=== PATIENT | female | born 1930 | race Caucasian/White ===

== ENCOUNTER → 2016-10-08 | Outpatient (CLI) | payer OTHER ==
[~2016-10-08] MED LIST: ALBUAER19 INH; AMLO-110 PO; ASPI-435 PO; ASPI81CH2 PO; ATOR-26 PO; ATOR80TA PO; CLS1 PO; COLE1TAB PO; DIPH25TA24 PO; DXY100 PO; FRS/40 PO; HYDR-4715 PO; LISI40TA PO; LSX20 PO; LSX40 PO; METO25TA56 PO; MULT-506 PO; MULT-513 PO; NRV/5 PO; OXYC1TAB3 PO; POTA20TA16 PO; SERT50TA PO; SPRIN/30 INH; TIOTCAP INH; VNTHFA/IN INH; ZLF/50 PO
--- NOTE | 2016-10-08 15:07 | DIAGNOSTIC IMAGING REPORT ---
CERVICAL SPINE 6 VIEWS HISTORY: Right arm pain NECK AND RIGHT ARM PAIN COMPARISON: None. FINDINGS: The cervical spine is visualized from C1 through the superior endplate of T1. There is no fracture. No subluxation. Mild degenerative disc changes throughout. Moderate osteophytic narrowing of the bulk of the neuroforamina bilaterally at all levels. IMPRESSION: Degenerative change. Osteopenia. Osteophytic narrowing of the bulk of the neuroforamina bilaterally Electronically signed by: Fernando Hassan M.D. 10/08/2016 3:05 PM Dictated Date/Time: 10/08/2016 3:05 PM
== END | disposition home or self-care (01) ==
LOC: C.RDSM 08:00
PROVIDERS: ATTEND Family Medicine
DX: M79.601 Pain in right arm (principal); M54.2 Cervicalgia

== ENCOUNTER 2016-12-11 17:08 | Emergency (ER) | payer OTHER ==
[~2016-12-11] VITALS: Ht 170.2 cm; Wt 106.9 kg
[~2016-12-11 17:08] MED LIST changes: -AMLO-110 PO; -ASPI-435 PO; -ATOR-26 PO; -COLE1TAB PO; -FRS/40 PO; -LISI40TA PO; -MULT-506 PO; -SERT50TA PO; -SPRIN/30 INH; -VNTHFA/IN INH
[2016-12-11 17:11] VITALS: TEMP 36.4; Ht 170.2 cm; Wt 106.9 kg
[2016-12-11 17:20] VITALS: O2SAT 93
[2016-12-11] MEDS ORDERED: RANITIDINE HCL 50 MG/100 ML D5W IV STA (17:22)
[2016-12-11] MEDS ORDERED: DEXAMETHASONE SOD INJ 10 MG/ML VIAL IV ONE (17:30)
[2016-12-11 17:37] LABS: BASO % 0.4 %; BASO ABS # 0.04 K/uL (0-0.2); COMPLETE YES; EOS % 2.2 %; HEMATOCRIT 41.4 % (37-47); IG% 0.6 %; LYMPH % 15.4 %; LYMPH ABS # 1.65 K/uL (1.2-3.4); MEAN CELL VOLUME 91.8 fL (80-100); MEAN CORPUSCULAR HEMOGLOBIN 30.6 pg (25-34); MEAN CORPUSCULAR HGB CONC 33.3 g/dl (32-36); MEAN PLATELET VOLUME 10.9 fL (7.4-10.4); MONO % 8.7 %; NEUT % 72.7 %; PLATELET COUNT 222 K/uL (130-400); RED BLOOD COUNT 4.51 M/uL (4.2-5.4); WHITE BLOOD COUNT 10.74 K/uL (4.8-10.8)
[2016-12-11] MEDS ORDERED: ATOR-26 PO (17:42)
[2016-12-11] MEDS ORDERED: VNTHFA/IN INH (17:42)
[2016-12-11] MEDS ORDERED: SERT50TA PO (17:42)
[2016-12-11] MEDS ORDERED: AMLO-110 PO (17:42)
[2016-12-11] MEDS ORDERED: SPRIN/30 INH (17:42)
[2016-12-11] MEDS ORDERED: FRS/40 PO (17:42)
[2016-12-11] MEDS ORDERED: MULT-506 PO (17:42)
[2016-12-11] MEDS ORDERED: ASPI-435 PO (17:42)
[2016-12-11] MEDS ORDERED: METO25TA56 PO (17:42)
[2016-12-11] MEDS ORDERED: COLE1TAB PO (17:42)
[2016-12-11] MEDS ORDERED: LISI40TA PO (17:42)
[2016-12-11 17:55] LABS: CREATININE 0.87 mg/dl (0.60-1.20); POTASSIUM 4.1 mmol/L (3.5-5.1)
--- NOTE | 2016-12-11 18:43 | EMERGENCY ROOM VISIT NOTE ---
ED Visit Note First contact with patient: 17:15 I saw this patient in conjunction with Ca zelaya PA-C. I agree with her decision-making and treatment plan.
--- NOTE | 2016-12-11 18:46 | EMERGENCY ROOM VISIT NOTE ---
History First contact with patient: 17:16 Chief Complaint: SWELLING TO EXTREMITY Stated Complaint: SWOLLEN FACE History of Present Illness The patient is a 86 year old female who presents to the Emergency Room with complaints of swelling to her lips and face. The patient states that she ate breakfast at 11 AM and one hour later she could start filling her lips and face swell. She denies any throat or chest tightness. The patient states that she had this happen one time in the past. She has never seen an senior financial accountant. The patient states that she did not eat anything out of the ordinary this morning for breakfast. She had Rice Krispies, V8 juice, milk and pinedo. The patient normally does not wear oxygen at home. She does admit to shortness of breath with exertion but that is normal for her. The patient denies any rashes. Review of Systems 10 system review was performed and was negative unless stated otherwise history of present illness. Past Medical/Surgical History Medical Problems: (1) Benign neoplasm of colon (2) Coronary angioplasty (3) Coronary artery bypass grafting (4) Diastolic CHF (5) Diastolic heart failure (6) Dyslipidemia (7) HTN (hypertension) (8) Hypertensive urgency (9) Intestinal cauterization (10) Lower gastrointestinal hemorrhage (11) Paroxysmal a-fib (12) Respiratory failure, acute (13) Total replacement of hip Surgical Problems: (1) H/O: hysterectomy (2) History of coronary artery stent placement (3) S/P TKR (total knee replacement) Family History Patient reports no known family medical history. Social History Smoking Status: Never Smoker Alcohol Use: none Drug Use: none Marital Status: Housing Status: lives with family Occupation Status: retired Current/Historical Medications Scheduled Amlodipine (Norvasc), 5 MG PO DAILY Aspirin (Aspirin 81), 81 MG PO DAILY Atorvastatin (Lipitor), 80 MG PO DAILY Colestipol Hcl (Colestid), 1 GM PO DAILY Furosemide (Lasix), 40 MG PO DAILY Lisinopril (Zestril), 40 MG PO DAILY Metoprolol Tartrate (Lopressor) (Lopressor), 12.5 MG PO BID Multivitamin (Multivitamin), 1 TAB PO DAILY Sertraline (Zoloft), 50 MG PO DAILY Tiotropium [place] (Spiriva Handihaler), 1 CAP INH DAILY Scheduled PRN Albuterol Hfa (Ventolin Hfa), 2-4 PUFFS INH Q6H PRN for SOB/Wheezing Allergies Coded Allergies: Fexofenadine (Verified Allergy, Mild, 09/05/15) Acetaminophen (Verified Allergy, Unknown, Hives., 09/05/15) Diphenhydramine (Verified Allergy, Unknown, 09/05/15) NSAIDs (Verified Adverse Reaction, Intermediate, ASA = BLEEDING, 09/05/15) Ezetimibe (Verified Adverse Reaction, Unknown, Nervous and jittery., ) Simvastatin (Verified Adverse Reaction, Unknown, Jittery and anxious., ) Physical Exam Vital Signs Date Time Temp Pulse Resp B/P Pulse Ox O2 Delivery O2 Flow Rate FiO2 12/11/16 18:24 86 22 131/91 94 Room Air 12/11/16 17:46 75 12/11/16 17:20 93 Room Air 12/11/16 17:11 36.4 74 28 108/62 96 Room Air Physical Exam GENERAL: 86-year-old white female appears in no acute distress. MENTAL STATUS: Alert and oriented 3. FACE: Generalized facial swelling without erythema. LIPS: Diffuse generalized swelling NECK: Supple, no lymphadenopathy noted. No carotid bruits noted. LUNGS: Clear auscultation without wheezes rales or rhonchi. CARDIAC: Regular rate and rhythm without murmur. Pulses is full and equal throughout. SKIN: No rashes noted. Medical Decision & Procedures Laboratory Results 12/11/16 17:26 Red Blood Count 4.51, Mean Corpuscular Volume 91.8, Mean Corpuscular Hemoglobin 30.6, Mean Corpuscular Hemoglobin Concent 33.3, Mean Platelet Volume 10.9, Neutrophils (%) (Auto) 72.7, Lymphocytes (%) (Auto) 15.4, Monocytes (%) (Auto) 8.7, Eosinophils (%) (Auto) 2.2, Basophils (%) (Auto) 0.4, Neutrophils # (Auto) 7.82, Lymphocytes # (Auto) 1.65, Monocytes # (Auto) 0.93, Eosinophils # (Auto) 0.24, Basophils # (Auto) 0.04 12/11/16 17:26 Test 12/11/16 17:26 White Blood Count 10.74 K/uL (4.8-10.8) Red Blood Count 4.51 M/uL (4.2-5.4) Hemoglobin 13.8 g/dL (12.0-16.0) Hematocrit 41.4 % (37-47) Mean Corpuscular Volume 91.8 fL (80-100) Mean Corpuscular Hemoglobin 30.6 pg (25-34) Mean Corpuscular Hemoglobin Concent 33.3 g/dl (32-36) Platelet Count 222 K/uL (130-400) Mean Platelet Volume 10.9 fL (7.4-10.4) Neutrophils (%) (Auto) 72.7 % Lymphocytes (%) (Auto) 15.4 % Monocytes (%) (Auto) 8.7 % Eosinophils (%) (Auto) 2.2 % Basophils (%) (Auto) 0.4 % Neutrophils # (Auto) 7.82 K/uL (1.4-6.5) Lymphocytes # (Auto) 1.65 K/uL (1.2-3.4) Monocytes # (Auto) 0.93 K/uL (0.11-0.59) Eosinophils # (Auto) 0.24 K/uL (0-0.5) Basophils # (Auto) 0.04 K/uL (0-0.2) RDW Standard Deviation 48.8 fL (36.4-46.3) RDW Coefficient of Variation 14.4 % (11.5-14.5) Immature Granulocyte % (Auto) 0.6 % Immature Granulocyte # (Auto) 0.06 K/uL (0.00-0.02) Anion Gap 7.0 mmol/L (3-11) Est Creatinine Clear Calc Drug Dose 56.3 ml/min Estimated GFR () 68.9 Estimated GFR (Non- 59.5 BUN/Creatinine Ratio 23.0 (10-20) Calcium Level 9.0 mg/dl (8.5-10.1) Medications Administered Medications (Trade) Dose Ordered Sig/Pily Route Start Time Stop Time Status Last Admin Dose Admin Dexamethasone Sodium Phosphate (Decadron Inj) 10 mg NOW ONCE IV 12/11/16 17:30 12/11/16 17:31 DC 12/11/16 17:30 10 MG Ranitidine HCl (zANTac IV) 50 mg NOW STAT IV 12/11/16 17:22 12/11/16 17:26 DC 12/11/16 17:30 50 MG ED Course The patient was evaluated. The patient's EMR and medication list were reviewed. IV access was obtained. The patient was placed on a monitor and continuous pulse ox. She is also placed on 2 L oxygen. CBC and differential and renal profile was ordered. The patient was given Decadron 10 mg IV and Zantac 50 mg IV. The patient was not given Benadryl since she is allergic to Benadryl. The patient's case was discussed with Dr. Wagner who independently evaluated the patient agreed with treatment plan. Labs are reviewed and were unremarkable. The patient was reevaluated on multiple occasions throughout her ER stay. The patient's lip swelling was improving and she did not complain of any throat or chest tightness therefore she was discharged home in stable condition. Medical Decision Differential diagnosis include allergic reaction, contact dermatitis, food allergy, anaphylaxis The patient did not have any throat or chest tightness therefore the patient was not administered epinephrine. Impression Primary Impression: Allergic reaction Departure Information Dispostion Home / Self-Care Condition GOOD Referrals No Doctor, Assigned (PCP) Forms HOME CARE DOCUMENTATION FORM, IMPORTANT VISIT INFORMATION, WORK / SCHOOL INSTRUCTIONS Patient Instructions ED Allergic Reaction General Other, CYBRA Additional Instructions Sleep with your head elevated this evening. If you experience any throat or chest tightness return to the ER immediately. Follow-up with your family physician tomorrow for recheck. Problem Qualifiers Primary Impression: Allergic reaction Encounter type: initial encounter Qualified Codes: T78.40XA - Allergy, unspecified, initial encounter
[2016-12-11 19:03] VITALS: BP 125/84; PULSE 85; O2SAT 96
== END 2016-12-11 19:06 | disposition home or self-care (01) ==
LOC: C.EDB 17:09 → C.EDC 19:06
DX: T78.40XA Allergy, unspecified, initial encounter (principal); X58.XXXA Exposure to other specified factors, initial encounter; I10 Essential (primary) hypertension; E78.5 Hyperlipidemia, unspecified; I48.91 Unspecified atrial fibrillation; I50.30 Unspecified diastolic (congestive) heart failure; Z98.61 Coronary angioplasty status; Z96.649 Presence of unspecified artificial hip joint; Z96.659 Presence of unspecified artificial knee joint; Z87.19 Personal history of other diseases of the digestive system; Z79.82 Long term (current) use of aspirin; Z79.899 Other long term (current) drug therapy; Z88.6 Allergy status to analgesic agent; Z88.8 Allergy status to other drugs, medicaments and biological substances

== ENCOUNTER → 2017-01-16 | Outpatient (CLI) | payer OTHER ==
[~2017-01-16] MED LIST changes: -ALBUAER19 INH; +AMLO-110 PO; +ASPI-435 PO; -ASPI81CH2 PO; +ATOR-26 PO; -ATOR80TA PO; -CLS1 PO; +COLE1TAB PO; -DIPH25TA24 PO; -DXY100 PO; +FRS/40 PO; -HYDR-4715 PO; +LISI40TA PO; -LSX20 PO; -LSX40 PO; +MULT-506 PO; -MULT-513 PO; -NRV/5 PO; -OXYC1TAB3 PO; -POTA20TA16 PO; +SERT50TA PO; +SPRIN/30 INH; -TIOTCAP INH; +VNTHFA/IN INH; -ZLF/50 PO
--- NOTE | 2017-01-16 11:46 | DIAGNOSTIC IMAGING REPORT ---
NECK ULTRASOUND CLINICAL HISTORY: Right anterior neck pain. COMPARISON STUDY: None. TECHNIQUE: Sonography of the neck was performed. FINDINGS: Note was made of a morphologically benign-appearing right cervical lymph node that measures 1.4 x 1.2 x 0.7 cm. This node has a fatty hilum with a thin cortex. No suspicious nodes or masses were identified within the neck. There is no fluid collection. IMPRESSION: 1. No suspicious findings within the neck at site of maximal pain by sonography. 2. Morphologically benign right cervical lymph node. Electronically signed by: Juventino Dasilva M.D. 01/16/2017 11:45 AM Dictated Date/Time: 01/16/2017 11:43 AM
== END | disposition home or self-care (01) ==
LOC: C.ULTR 10:53
PROVIDERS: ATTEND Family Medicine
DX: M54.2 Cervicalgia (principal)

== ENCOUNTER → 2017-03-27 | Outpatient (CLI) | payer OTHER ==
--- NOTE | 2017-03-27 16:07 | DIAGNOSTIC IMAGING REPORT ---
RIGHT SHOULDER 3 VIEWS HISTORY: RIGHT SHOULDER AND ARM PAIN Right COMPARISON: None. FINDINGS: There is no fracture or dislocation. Soft tissues are unremarkable. Mild AC joint arthrosis. The right clavicle is intact. The bones are osteopenic. Severe cartilage space narrowing at the glenohumeral joint with small marginal osteophytes. This is consistent with osteoarthritis. Mild interstitial thickening within the right lung. IMPRESSION: No fracture or dislocation within the right shoulder. Advanced glenohumeral joint osteoarthritis. Electronically signed by: Musa Scott M.D. 03/27/2017 4:06 PM Dictated Date/Time: 03/27/2017 4:04 PM
== END | disposition home or self-care (01) ==
LOC: C.RDSM 15:33
PROVIDERS: ATTEND Family Medicine
DX: M19.011 Primary osteoarthritis, right shoulder (principal)

== ENCOUNTER → 2017-04-23 | Day surgery (SDC) | payer OTHER ==
[2017-04-02 12:58] VITALS: Ht 171.5 cm; Wt 90.9 kg
[~2017-04-23] VITALS: Ht 171.5 cm; Wt 90.9 kg
[~2017-04-23] MED LIST changes: +500ML BSS 0.3ML EPI 1:1000PF IRRIG ONE; +AMVISC PLUS 0.8ML SYRINGE INT OCU ONE; +ATROPINE SULFATE 0.1 MG/ML 5ML SYR IV PRN; +BSS FLUSH ONE; +EpHEDrine SULFATE INJ 50 MG/ML AMP IV PRN; +EpINEphrine INJ 1MG/ML AMP 1 MG/ML AMP ONE; +LACTATED RINGER'S 1000ML 500 ML IV SCH; +LIDOCAINE 3.5% OPH GEL PER APPLICATION CHARGE ONE; +LIDOCAINE HCL 1% MPF 2 ML VIAL ONE; +MIDAZOLAM HCL 1 MG/ML 2ML VIAL ONE; +OCUCOAT 1 ML SOLN IO ONE; +POVIDONE-IODINE OP SOLN 30 ML BTL ONE; +PROPARACAINE 0.5% OP SOLN PER DROP CHARGE OPR SCH; +SODIUM CHLORIDE 0.9% 500ML IV SCH; +TOBRAMYCIN/DEXAMETHASONE OPH OINT PER APPLN CHARGE ONE
--- NOTE | 2017-04-23 09:21 | History & Physical Bridge - [place] ---
H&P Re-Evaluation Bridge Note: I have examined the patient, reviewed the History & Physical and in the interval since the performance of the History & Physical I have noted the following changes of clinical significance: No changes noted
[2017-04-23] MEDS: PHENYLEPHRINE HCL 2.5% OP SOLN PER DROP CHARGE OPR SCH ×2 (09:48→09:53)
[2017-04-23] MEDS: TROPICAMIDE 1% OP SOLN PER DROP CHARGE OPR SCH ×2 (09:49→09:54)
[2017-04-23] MEDS: CYCLOPENTOLATE HCL 1% OP SOLN PER DROP CHARGE OPR SCH ×2 (09:50→09:55)
[2017-04-23] MEDS: KETOROLAC 0.5% OP SOLN PER DROP CHARGE OPR SCH ×2 (09:51→09:56)
[2017-04-23] MEDS: GATIFLOXACIN OP SOLN PER DROP CHARGE OPR SCH ×2 (09:52→10:02)
--- NOTE | 2017-04-23 10:30 | Discharge Instructions-SurgCtr ---
Discharge Instructions Date of Service Apr 23, 2017. Visit Reason for Visit: Cataract Right Eye Discharge Discharge Diagnosis / Problem: cataract Discharge Goals Goal(s): Improve function Activity Recommendations Activity Limitations: per Instructions/Follow-up section Anesthesia . Post Anesthesia Instructions: If you have had General Anesthesia or IV Sedation: * Do not drive today. * Resume driving when surgeon permits. * Do not make important decisions or sign legal documents today. * Call surgeon for: 1. Temperature elevations greater than 101 degrees F. 2. Uncontrollable pain. 3. Excessive bleeding. 4. Persistent nausea and vomiting. 5. Medication intolerance (nausea, vomiting or rash). * For nausea and vomiting use only clear liquids such as: tea, soda, bouillon until nausea subsides, then gradually increase diet as tolerated. * If you have any concerns or questions, call your surgeon's office. If physician is unavailable and it is an emergency, call 911 or go to the nearest emergency room. . Diet Recommendations Home Diet: resume previous diet Procedures Procedures Performed: Right Cataract Phacoemulsification With Intraocular Lens Implant Pending Studies Studies pending at discharge: no Medical Emergencies . Who to Call and When: Medical Emergencies: If at any time you feel your situation is an emergency, please call 911 immediately. . Non-Emergent Contact Non-Emergency issues call your: Member Services Coordinator . . "Provider Documentation" section prepared by Cezar Smith. .
--- NOTE | 2017-04-23 10:31 | [facility] Operative Report ---
Operative Report Date of Service Apr 23, 2017. Operative Report 1. PREOPERATIVE DIAGNOSIS: Cataract of the right eye. 2. POSTOPERATIVE DIAGNOSIS: Same. 3. PROCEDURE: Phacoemulsification with intraocular lens implantation of the right eye. SURGEON: Dr. Cezar Smith. ANESTHESIA: Topical Lidocaine gel, 1% Non- Preserved intracameral Lidocaine, and monitored intravenous sedation. INDICATIONS FOR THE PROCEDURE: The patient is a 86 - year-old female with a history of cataract of the right eye causing significant visual impairment. The details of the proposed procedure were explained to the patient who asked appropriate questions and following discussion of all risks, benefits and alternatives agreed to have the procedure done. 4. OPERATION AND FINDINGS: DESCRIPTION OF PROCEDURE: After informed consent was obtained, the patient was brought to the Operating Room at the [facility]. The patient was placed in a supine position and then the right eye was prepped and draped in the usual sterile fashion for intraocular surgery. A drop of topical Lidocaine gel was placed in the operative eye. A wire lid speculum was then placed in the fornices. A corneal paracentesis was then created temporally. The Non-Preserved Lidocaine was then instilled into the anterior chamber. The anterior chamber was then pressurized with viscoelastic. A 2.0 mm clear corneal incision was then created temporally. A cystotome was inserted into the anterior chamber and used to create a tear in the anterior lens capsule. This capsular tear was then used to create a small flap and the flap was dragged in a counterclockwise direction in order to create a continuous curvilinear capsulorrhexis. Hydrodissection was accomplished with balanced salt solution. Phacoemulsification of the lens nucleus was then performed in a standard [id number] technique. The phaco time was 27 seconds with an average power of 15 %. The remaining cortical material was removed using irrigation aspiration. The capsular bag was then filled with viscoelastic. A [employer]ch [employer] Lomb MI60L +15.5 diopters lens was then loaded into the injector and injected into the capsular bag. The remaining viscoelastic was removed with the irrigation aspiration handpiece. The wound was hydrated and then checked and found to be watertight. The intraocular pressure was checked and found to be adequate. The wire lid speculum was removed and the patient's face was cleaned and dried. TobraDex ointment was placed in the inferior fornix. The patient was discharged to the Recovery Room having tolerated the procedure well. There were no complications. The patient will be seen tomorrow in the office for follow-up. I attest to the content of the Intraoperative Record and any orders documented therein. Any exceptions are noted below.
--- NOTE | 2017-04-23 10:38 | Anesthesia Progress Nt - [facility] ---
Anesthesia Post Op Note Date & Time Apr 23, 2017 at 10:38 Vital Signs Pain Intensity: 0 Vital Signs Past 12 Hours Date Time Temp Pulse Resp B/P (MAP) Pulse Ox O2 Delivery O2 Flow Rate FiO2 04/23/17 09:28 36.4 94 20 151/74 (99) 95 Room Air Notes Mental Status: alert / awake / arousable, participated in evaluation Pt Amnestic to Procedure: Yes Nausea / Vomiting: adequately controlled Pain: adequately controlled Airway Patency, RR, SpO2: stable & adequate BP & HR: stable & adequate Hydration State: stable & adequate Anesthetic Complications: no major complications apparent
[2017-04-23 10:54] VITALS: BP 127/73; PULSE 88; O2SAT 94
== END | disposition home or self-care (01) ==
LOC: X.SURG 08:35
PROVIDERS: ATTEND Ophthalmology
DX: H26.9 Unspecified cataract (principal); I25.10 Atherosclerotic heart disease of native coronary artery without angina pectoris; I11.0 Hypertensive heart disease with heart failure; I50.9 Heart failure, unspecified; I48.91 Unspecified atrial fibrillation; E78.5 Hyperlipidemia, unspecified; I25.2 Old myocardial infarction; Z96.649 Presence of unspecified artificial hip joint; Z68.31 Body mass index [BMI] 31.0-31.9, adult; Z96.641 Presence of right artificial hip joint; Z96.652 Presence of left artificial knee joint; Z90.710 Acquired absence of both cervix and uterus; Z79.899 Other long term (current) drug therapy

== ENCOUNTER → 2017-04-29 | Outpatient (CLI) | payer OTHER ==
[~2017-04-29] MED LIST changes: -500ML BSS 0.3ML EPI 1:1000PF IRRIG ONE; -AMVISC PLUS 0.8ML SYRINGE INT OCU ONE; -ATROPINE SULFATE 0.1 MG/ML 5ML SYR IV PRN; -BSS FLUSH ONE; -EpHEDrine SULFATE INJ 50 MG/ML AMP IV PRN; -EpINEphrine INJ 1MG/ML AMP 1 MG/ML AMP ONE; -LACTATED RINGER'S 1000ML 500 ML IV SCH; -LIDOCAINE 3.5% OPH GEL PER APPLICATION CHARGE ONE; -LIDOCAINE HCL 1% MPF 2 ML VIAL ONE; -MIDAZOLAM HCL 1 MG/ML 2ML VIAL ONE; -OCUCOAT 1 ML SOLN IO ONE; +OPTIRAY 320 IV PRN; -POVIDONE-IODINE OP SOLN 30 ML BTL ONE; -PROPARACAINE 0.5% OP SOLN PER DROP CHARGE OPR SCH; -SODIUM CHLORIDE 0.9% 500ML IV SCH; -TOBRAMYCIN/DEXAMETHASONE OPH OINT PER APPLN CHARGE ONE
--- NOTE | 2017-04-29 16:06 | DIAGNOSTIC IMAGING REPORT ---
CT SCAN OF THE CHEST WITH IV CONTRAST CLINICAL HISTORY: Dyspnea. COMPARISON STUDY: Chest CT dated 12/26/2009. Chest x-ray dated 01/20/2016. TECHNIQUE: Following the IV administration of 93 cc of Optiray 320, CT scan of the thorax was performed from the thoracic inlet to the upper abdomen. Images are reviewed in the axial, sagittal, and coronal planes. IV contrast was administered without complication. A dose lowering technique was utilized adhering to the principles of ALARA. CT DOSE: 655.87 mGycm FINDINGS: Thyroid: Imaged portions of the thyroid gland are normal in size and attenuation. 11 mm low-attenuation nodule containing a coarse calcification is seen in the right lobe. Thoracic aorta: There is atherosclerotic calcification of the thoracic aorta is normal in caliber and demonstrates bovine variant arch anatomy. No dissection is seen. Pulmonary vasculature: The pulmonary trunk is dilated measuring 4.5 cm in diameter. This suggests pulmonary artery hypertension. There are no filling defects identified in the central pulmonary vessels to indicate pulmonary embolus. Note that this examination was not protocoled for evaluation of the pulmonary arteries. Heart: The heart is markedly enlarged and there is a small to moderate pericardial effusion. The coronary arteries are densely calcified. Lungs and pleural spaces: There is no airspace consolidation or pleural effusion. The trachea and central airways are clear. Subpleural reticulation is seen throughout both lungs. No honeycombing or traction bronchiectasis is identified. An 11 mm right lower lobe pulmonary nodule seen on image #140 is new from studies dated 2010. A 4 mm pleural-based nodule in the lingula on image #100 is unchanged. Mediastinum: There are prominent mediastinal lymph nodes which measure up to 1.4 cm in short axis. These are similar appearance to the 2010 examination. Penny: Clear. Axillae: There is no axillary lymphadenopathy. Upper abdomen: A tiny hiatal hernia is identified. A 2.0 cm left adrenal nodule is unchanged from 2010 and likely represents a benign adenoma. Skeletal structures: The skeletal structures are osteopenic. Advanced arthritic change is seen in the shoulders and thoracic spine. Hyperkyphosis is observed. No lytic or blastic bony lesions are seen. IMPRESSION: 1. There is no airspace consolidation or pleural effusion. 2. Cardiomegaly with a small to moderate pericardial effusion and evidence of pulmonary artery hypertension. 3. Diffuse subpleural reticulation is likely related to chronic lung disease. 4. An 11 mm right lower lobe pulmonary nodule is new from 2009. This is pathologically indeterminant with neoplasm not excluded. This can be followed if clinically warranted. 5. Additional findings as above. Electronically signed by: Kyler Buckley M.D. 04/29/2017 4:05 PM Dictated Date/Time: 04/29/2017 3:57 PM
[2017-04-29 20:16] LABS: ISTAT CREATININE 0.7 mg/dl (0.6-1.3); ISTAT HEMOGLOBIN 13.6 g/dl (12.0-16.0); ISTAT IONIZED CALCIUM 1.26 mmol/l (1.12-1.32)
== END | disposition home or self-care (01) ==
LOC: C.CTS 14:38
PROVIDERS: ATTEND Internal Medicine Pulmonary Disease
DX: R06.00 Dyspnea, unspecified (principal); I51.7 Cardiomegaly; I31.8 Other specified diseases of pericardium; R91.8 Other nonspecific abnormal finding of lung field; R91.1 Solitary pulmonary nodule

== ENCOUNTER → 2017-05-13 | Outpatient (CLI) | payer OTHER ==
[~2017-05-13] MED LIST changes: -OPTIRAY 320 IV PRN
--- NOTE | 2017-05-13 16:14 | DIAGNOSTIC IMAGING REPORT ---
PET/CT SKULL-THIGH CLINICAL HISTORY: 86 years-old Female with PULMONARY NODULE. Follow-up study to assess pulmonary nodule. 11 mm right lower lobe pulmonary nodule seen on comparison CT. COMPARISON: Chest CT 04/29/2017 and 12/26/2009 TECHNIQUE: The patient was injected with 9.6 mCi of F-18 fluorodeoxyglucose (FDG) and an emission scan was performed from the skull vertex to the toes. Noncontrast CT was performed for attenuation correction and anatomic localization. The blood glucose level was 120 mg/dl. FINDINGS: Study is moderately limited secondary to patient motion artifact. HEAD AND NECK: There is focal increased radiotracer uptake in the region of the left mandibular teeth without correlate on the CT portion of the study secondary to streak artifact from dental amalgam demonstrating SUV max of 5.1. Mildly increased tracer uptake is seen involving the left vocal cord with SUV max of 4.4 which appears to be mildly thickened in comparison to the right, likely incidental secondary to recent speech. CHEST: 11 x 7 mm noncalcified pulmonary nodule of the superior segment right lower lobe seen on image 88 series 2 without definite increased radiotracer uptake. As previously mentioned however, the study is limited secondary to motion. There is a physiologic distribution of activity, with no hypermetabolic mediastinal, hilar or pulmonary foci. ABDOMEN AND PELVIS: There is a physiologic distribution of activity within the liver, spleen, adrenal glands, and urinary tracts, with no hypermetabolic foci. Mildly increased radiotracer uptake within the distal sigmoid colon is noted with SUV max of 5.3. MUSCULOSKELETAL SYSTEM AND EXTREMITIES: There is a physiologic distribution of activity within the bone marrow, with no hypermetabolic foci. Likely degenerative mild uptake is noted about the shoulders and spine as well as within the region of the left SI joint. ADDITIONAL CT FINDINGS: Cardiomegaly with coronary arterial disease, mitral valve annular calcifications, small pericardial effusion and pulmonary arterial enlargement compatible with pulmonary arterial hypertension. Mildly enlarged lymph nodes about the mediastinum noted with right paratracheal lymph node measuring up to 11 mm. No significant associated FDG uptake suggesting physiologic etiology. Bilateral groundglass opacities suggest atelectasis and/or chronic interstitial changes. Extensive atherosclerosis of the abdominal aorta with fusiform infrarenal aneurysm, 4.1 x 3.6 cm. Cholelithiasis. Extensive colonic diverticulosis. Right hip arthroplasty. Calcifications of the left breast parenchyma. IMPRESSION: 1. Moderately limited study secondary to patient motion. 2. 11 x 7 mm noncalcified solid pulmonary nodule of the superior segment right lower lobe does not demonstrate appreciable FDG uptake. This however does not exclude neoplasm and is borderline limits in size for PET resolution. Continued follow-up is needed. 3. Mildly increased radiotracer uptake of the distal sigmoid colon is likely physiologic. This could be correlated with colonoscopy. 4. Mildly increased radiotracer uptake within the region of the left mandibular teeth without correlate on the CT portion secondary to streak artifact from dental amalgam suggests periodontal disease. Correlate with dental examination. 5. Incidental findings include cardiomegaly with evidence of pulmonary arterial hypertension, 4.1 cm fusiform infrarenal abdominal aortic aneurysm, cholelithiasis and colonic diverticulosis. The above report was generated using voice recognition software. It may contain grammatical, syntax or spelling errors. Electronically signed by: Micheal Callahan M.D. 05/13/2017 4:12 PM Dictated Date/Time: 05/13/2017 3:00 PM
== END | disposition home or self-care (01) ==
LOC: C.PET 10:07
PROVIDERS: ATTEND Internal Medicine Pulmonary Disease
DX: R91.1 Solitary pulmonary nodule (principal)

== ENCOUNTER → 2017-05-14 | Day surgery (SDC) | payer OTHER ==
[2017-05-02 12:45] VITALS: Ht 171.5 cm; Wt 90.9 kg
[~2017-05-14] VITALS: Ht 171.5 cm; Wt 90.9 kg
[~2017-05-14] MED LIST changes: +500ML BSS 0.3ML EPI 1:1000PF IRRIG ONE; +AMVISC PLUS 0.8ML SYRINGE INT OCU ONE; +ATROPINE SULFATE 0.1 MG/ML 5ML SYR IV PRN; +BSS FLUSH ONE; +EpHEDrine SULFATE INJ 50 MG/ML AMP IV PRN; +EpINEphrine INJ 1MG/ML AMP 1 MG/ML AMP ONE; +LACTATED RINGER'S 1000ML 500 ML IV SCH; +LIDOCAINE 3.5% OPH GEL PER APPLICATION CHARGE ONE; +LIDOCAINE HCL 1% MPF 2 ML VIAL ONE; +MIDAZOLAM HCL 1 MG/ML 2ML VIAL ONE; +OCUCOAT 1 ML SOLN IO ONE; +POVIDONE-IODINE OP SOLN 30 ML BTL ONE; +PROPARACAINE 0.5% OP SOLN PER DROP CHARGE OPL SCH; +TOBRAMYCIN/DEXAMETHASONE OPH OINT PER APPLN CHARGE ONE
[2017-05-14] MEDS: PHENYLEPHRINE HCL 2.5% OP SOLN PER DROP CHARGE OPL SCH ×2 (10:47→10:52)
[2017-05-14] MEDS: TROPICAMIDE 1% OP SOLN PER DROP CHARGE OPL SCH ×2 (10:48→10:53)
[2017-05-14] MEDS: CYCLOPENTOLATE HCL 1% OP SOLN PER DROP CHARGE OPL SCH ×2 (10:49→10:54)
[2017-05-14] MEDS: KETOROLAC 0.5% OP SOLN PER DROP CHARGE OPL SCH ×2 (10:50→10:55)
[2017-05-14] MEDS: GATIFLOXACIN OP SOLN PER DROP CHARGE OPL SCH ×2 (10:51→11:03)
--- NOTE | 2017-05-14 11:46 | Discharge Instructions-SurgCtr ---
Discharge Instructions Date of Service May 14, 2017. Visit Reason for Visit: Cataract Left Eye Discharge Discharge Diagnosis / Problem: cataract Discharge Goals Goal(s): Improve function Activity Recommendations Activity Limitations: per Instructions/Follow-up section Anesthesia . Post Anesthesia Instructions: If you have had General Anesthesia or IV Sedation: * Do not drive today. * Resume driving when surgeon permits. * Do not make important decisions or sign legal documents today. * Call surgeon for: 1. Temperature elevations greater than 101 degrees F. 2. Uncontrollable pain. 3. Excessive bleeding. 4. Persistent nausea and vomiting. 5. Medication intolerance (nausea, vomiting or rash). * For nausea and vomiting use only clear liquids such as: tea, soda, bouillon until nausea subsides, then gradually increase diet as tolerated. * If you have any concerns or questions, call your surgeon's office. If physician is unavailable and it is an emergency, call 911 or go to the nearest emergency room. . Diet Recommendations Home Diet: resume previous diet Procedures Procedures Performed: Left Cataract Phacoemulsification With Intraocular Lens Implant Pending Studies Studies pending at discharge: no Medical Emergencies . Who to Call and When: Medical Emergencies: If at any time you feel your situation is an emergency, please call 911 immediately. . Non-Emergent Contact Non-Emergency issues call your: Manager Learning . . "Provider Documentation" section prepared by Cezar Smith. .
[2017-05-14 11:47] VITALS: TEMP 36.7
--- NOTE | 2017-05-14 11:47 | [facility] Operative Report ---
Operative Report Date of Service May 14, 2017. Operative Report 1. PREOPERATIVE DIAGNOSIS: Cataract of the left eye. 2. POSTOPERATIVE DIAGNOSIS: Same. 3. PROCEDURE: Phacoemulsification with intraocular lens implantation of the left eye. SURGEON: Dr. Cezar Smith. ANESTHESIA: Topical Lidocaine gel, 1% Non- Preserved intracameral Lidocaine, and monitored intravenous sedation. INDICATIONS FOR THE PROCEDURE: The patient is a 86 - year-old female with a history of cataract of the left eye causing significant visual impairment. The details of the proposed procedure were explained to the patient who asked appropriate questions and following discussion of all risks, benefits and alternatives agreed to have the procedure done. 4. OPERATION AND FINDINGS: DESCRIPTION OF PROCEDURE: After informed consent was obtained, the patient was brought to the Operating Room at the [facility]. The patient was placed in a supine position and then the left eye was prepped and draped in the usual sterile fashion for intraocular surgery. A drop of topical Lidocaine gel was placed in the operative eye. A wire lid speculum was then placed in the fornices. A corneal paracentesis was then created temporally. The Non-Preserved Lidocaine was then instilled into the anterior chamber. The anterior chamber was then pressurized with viscoelastic. A 2.0 mm clear corneal incision was then created temporally. A cystotome was inserted into the anterior chamber and used to create a tear in the anterior lens capsule. This capsular tear was then used to create a small flap and the flap was dragged in a counterclockwise direction in order to create a continuous curvilinear capsulorrhexis. Hydrodissection was accomplished with balanced salt solution. Phacoemulsification of the lens nucleus was then performed in a standard [id number] technique. The phaco time was 28 seconds with an average power of 21 %. The remaining cortical material was removed using irrigation aspiration. The capsular bag was then filled with viscoelastic. A B[employer]ch [employer] Lomb MI60L +15.5 diopters lens was then loaded into the injector and injected into the capsular bag. The remaining viscoelastic was removed with the irrigation aspiration handpiece. The wound was hydrated and then checked and found to be watertight. The intraocular pressure was checked and found to be adequate. The wire lid speculum was removed and the patient's face was cleaned and dried. TobraDex ointment was placed in the inferior fornix. The patient was discharged to the Recovery Room having tolerated the procedure well. There were no complications. The patient will be seen tomorrow in the office for follow-up. I attest to the content of the Intraoperative Record and any orders documented therein. Any exceptions are noted below.
[2017-05-14 12:06] VITALS: BP 146/74; PULSE 90; O2SAT 96
--- NOTE | 2017-05-14 12:09 | Anesthesia Progress Nt - [facility] ---
Anesthesia Post Op Note Date & Time May 14, 2017 at 12:09 Vital Signs Pain Intensity: 0 Vital Signs Past 12 Hours Date Time Temp Pulse Resp B/P (MAP) Pulse Ox O2 Delivery O2 Flow Rate FiO2 05/14/17 12:06 90 22 146/74 (98) 96 Room Air 05/14/17 11:47 36.7 106 16 150/87 (108) 96 Room Air 05/14/17 10:37 37.0 97 28 140/81 (100) 94 Room Air Notes Mental Status: alert / awake / arousable, participated in evaluation Pt Amnestic to Procedure: Yes Nausea / Vomiting: adequately controlled Pain: adequately controlled Airway Patency, RR, SpO2: stable & adequate BP & HR: stable & adequate Hydration State: stable & adequate Anesthetic Complications: no major complications apparent
== END | disposition home or self-care (01) ==
LOC: X.SURG 10:16
PROVIDERS: ATTEND Ophthalmology
DX: H25.9 Unspecified age-related cataract (principal); I10 Essential (primary) hypertension; E78.5 Hyperlipidemia, unspecified; J84.9 Interstitial pulmonary disease, unspecified; F41.9 Anxiety disorder, unspecified; Z79.899 Other long term (current) drug therapy

== ENCOUNTER → 2017-06-07 | Outpatient (CLI) | payer OTHER ==
[~2017-06-07] MED LIST changes: -500ML BSS 0.3ML EPI 1:1000PF IRRIG ONE; -AMVISC PLUS 0.8ML SYRINGE INT OCU ONE; -ATROPINE SULFATE 0.1 MG/ML 5ML SYR IV PRN; -BSS FLUSH ONE; -EpHEDrine SULFATE INJ 50 MG/ML AMP IV PRN; -EpINEphrine INJ 1MG/ML AMP 1 MG/ML AMP ONE; -LACTATED RINGER'S 1000ML 500 ML IV SCH; -LIDOCAINE 3.5% OPH GEL PER APPLICATION CHARGE ONE; -LIDOCAINE HCL 1% MPF 2 ML VIAL ONE; -MIDAZOLAM HCL 1 MG/ML 2ML VIAL ONE; -OCUCOAT 1 ML SOLN IO ONE; -POVIDONE-IODINE OP SOLN 30 ML BTL ONE; -PROPARACAINE 0.5% OP SOLN PER DROP CHARGE OPL SCH; -SPRIN/30 INH; -TOBRAMYCIN/DEXAMETHASONE OPH OINT PER APPLN CHARGE ONE
--- NOTE | 2017-06-07 12:44 | DIAGNOSTIC IMAGING REPORT ---
LUNG IMAGING VQ CLINICAL HISTORY: Dyspnea. Chest pain. COMPARISON: None TECHNIQUE: For the ventilation portion of this exam, 33 mCi of DTPA was inhaled at 7:30. Immediately following inhalation, imaging of the chest was carried out in the anterior, posterior, left lateral, right lateral, LPO, RPO, MONGOLIAN and PEREZ projections. For the perfusion portion of exam, 5.8 mCi of technetium 99m MAA was injected IV at 12:15. Immediately following injection, imaging of the chest was carried out in the same projections. FINDINGS: Perfusion images show subtle perfusion in homogeneity throughout both lungs. A major perfusion defect, however is not appreciated. The aerosol component of the study shows diffuse heterogeneity throughout. There is no evidence for significant ventilation/perfusion mismatch. There is a small amount of central air trapping but no major central air trapping process is appreciated. IMPRESSION: Low probability of pulmonary embolus. The above report was generated using voice recognition software. It may contain grammatical, syntax or spelling errors. Electronically signed by: Fernando Hassan M.D. 06/07/2017 12:43 PM Dictated Date/Time: 06/07/2017 12:40 PM
--- NOTE | 2017-06-07 13:07 | DIAGNOSTIC IMAGING REPORT ---
CHEST 2 VIEWS ROUTINE CLINICAL HISTORY: 86 years-old Female presenting with LUNG NODULE SOLITARY 793.11 491.1 PULMONARY HYPERTENSION 416.8. TECHNIQUE: PA and lateral views of the chest were obtained. COMPARISON: 01/20/2016. FINDINGS: Atherosclerosis of aortic arch. Marked enlargement of the cardiac silhouette unchanged. Patchy bilateral opacities with a mid to basilar predominance. No pleural effusion or pneumothorax. Exaggerated thoracic kyphosis with suspected underlying osteopenia. Mild height loss of several midthoracic vertebral bodies. Upper abdomen normal. IMPRESSION: 1. Cardiomegaly with findings suggestive of mild pulmonary edema, stable to slightly increased from prior. Electronically signed by: Damir Rodriguez M.D. 06/07/2017 1:05 PM Dictated Date/Time: 06/07/2017 1:04 PM
== END | disposition home or self-care (01) ==
LOC: C.NUCL 10:58
PROVIDERS: ATTEND Internal Medicine Pulmonary Disease
DX: I27.20 Pulmonary hypertension, unspecified (principal); R91.1 Solitary pulmonary nodule; R09.02 Hypoxemia; I51.7 Cardiomegaly

== ENCOUNTER 2017-07-07 10:25 | Inpatient (IN) | payer OTHER ==
[~2017-07-07] VITALS: Ht 170.2 cm; Wt 101.5 kg
[2017-07-07 11:06] LABS: BASO % 0.3 %; BASO ABS # 0.04 K/uL (0-0.2); COMPLETE YES; EOS % 2.6 %; IG% 0.4 %; LYMPH % 6.9 %; LYMPH ABS # 0.96 K/uL (1.2-3.4); MEAN CELL VOLUME 91.3 fL (80-100); MEAN CORPUSCULAR HEMOGLOBIN 29.9 pg (25-34); MEAN CORPUSCULAR HGB CONC 32.8 g/dl (32-36); MEAN PLATELET VOLUME 10.7 fL (7.4-10.4); MONO % 4.1 %; NEUT % 85.7 %; PLATELET COUNT 168 K/uL (130-400); RED BLOOD COUNT 4.71 M/uL (4.2-5.4); WHITE BLOOD COUNT 13.98 K/uL (4.8-10.8)
[2017-07-07] MEDS ORDERED: PRED10TA PO ×2 (11:08→14:05)
[2017-07-07 11:17] LABS: INR 1.1 (0.9-1.1); PARTIAL THROMBOPLASTIN RATIO 0.9; PROTHROMBIN TIME (PATIENT) 11.2 SECONDS (9.0-12.0)
[2017-07-07] MEDS ORDERED: OPTIRAY 320 IV PRN (11:30)
[2017-07-07 11:33] LABS: BLOOD UREA NITROGEN 21 mg/dl (7-18); CREATININE 0.74 mg/dl (0.60-1.20); GLUCOSE 128 mg/dl (70-99)
[2017-07-07 11:34] LABS: ALT/SGPT 33 U/L (12-78); AST/SGOT 24 U/L (15-37); BUN/CREATININE RATIO 28.1 (10-20); CARBON DIOXIDE 28 mmol/L (21-32); CHLORIDE 105 mmol/L (98-107); POTASSIUM 4.4 mmol/L (3.5-5.1); SODIUM 139 mmol/L (136-145)
[2017-07-07 11:36] LABS: ALB/GLOB RATIO 0.8 (0.9-2); ALKALINE PHOSPHATASE 151 U/L (45-117)
--- NOTE | 2017-07-07 11:36 | DIAGNOSTIC IMAGING REPORT ---
CHEST ONE VIEW PORTABLE CLINICAL HISTORY: 86 years-old Female presenting with sob. TECHNIQUE: Portable upright AP view of the chest was obtained. COMPARISON: 06/07/2017. FINDINGS: Atherosclerosis of aortic arch. Cardiac silhouette moderately enlarged as on prior exam. Pulmonary vascular prominence. Peripheral predominant hazy and reticular opacities. Previously noted 11 mm right lower lobe nodule on CT from 04/29/2017 is not radiographically apparent allowing for portable AP technique. No large effusion or pneumothorax. Degenerative changes of the glenohumeral joints, right greater than left. Surgical clips in the right breast project over the right upper quadrant. IMPRESSION: 1. Cardiomegaly with volume overload. 2. Peripheral opacities likely chronic lung disease as demonstrated on prior CT from 04/29/2017. No new superimposed infiltrate. 3. Previously noted right lower lobe nodule on CT is not apparent on this radiograph. Follow-up is recommended. Please see previously dictated CT report. Electronically signed by: Damir Rodriguez M.D. 07/07/2017 11:35 AM Dictated Date/Time: 07/07/2017 11:32 AM
--- NOTE | 2017-07-07 12:25 | DIAGNOSTIC IMAGING REPORT ---
(CHEST FOR PE) ANGIO WITH CLINICAL HISTORY: 86 years-old Female presenting with ^sob eval for PE, chest pain. TECHNIQUE: Multidetector CT angiography of the chest was performed after administration of intravenous contrast. 3-D volumetric and/or maximum intensity projection (MIP) images were subsequently reconstructed for review. IV contrast: 93 mL of Optiray 320. A dose lowering technique was used consistent with the principles of ALARA (as low as reasonably achievable). COMPARISON: 04/29/2017. CT DOSE (mGy.cm): The estimated cumulative dose is 676.40 mGy.cm. FINDINGS: Plush Dresser topogram: Cardiomegaly. Pulmonary vasculature: The study is suboptimal for the assessment of pulmonary embolus secondary to respiratory motion artifact. Allowing for this, no central filling defect. Evaluation of segmental and subsegmental pulmonary arteries is slightly limited. Main pulmonary artery is enlarged measuring 4.4 cm in diameter. The right and left pulmonary arteries are also enlarged as are the segmental and subsegmental arteries. No flattening of the interventricular septum. No intracardiac intracardiac filling defect. Mild reflux of contrast into the intrahepatic IVC suggesting elevated right heart pressure. Remaining chest: On soft tissue windows, few small nodules in the thyroid, one of which in the right lobe is calcified. Calcified focus in the left breast, possibly degenerated fibroadenoma. Several subcentimeter lymph nodes in the mediastinum in the prevascular and precarinal regions, measuring up to 10 mm in the short axis. Atherosclerosis of the aorta. The branch vessels of the aortic arch are tortuous likely implying chronic hypertension. Multichamber enlargement of the heart. Aortic valve, coronary artery, and mitral annular calcification. Persistent small pericardial effusion not significantly changed from prior exam. No gross evidence of pericardial nodularity. No pleural effusion. 14 mm right adrenal gland nodule with a density consistent with benign adenoma. On lung windows, patchy groundglass opacity well joint dated by smooth interlobular septal thickening consistent with a crazy painting pattern. Dependent reticulation also noted. Respiratory artifact obscures the pulmonary architecture at the lung bases. Central airways patent. Peripheral areas poorly assessed. On bone windows, degenerative changes of the spine. Degenerative changes of the bilateral glenohumeral joints. Multiple old right rib fractures noted in varying stages of healing. IMPRESSION: 1. Allowing for motion artifact degradation, no evidence of central pulmonary embolus. 2. Findings consistent with cardiogenic pulmonary edema with elevated pulmonary arterial and right heart pressures likely a consequence of elevated left heart pressure. 3. Borderline mediastinal lymphadenopathy. 4. 14 mm right adrenal gland benign adenoma. 5. Multiple old right rib fractures in varying stages of healing. Electronically signed by: Damir Rodriguez M.D. 07/07/2017 12:24 PM Dictated Date/Time: 07/07/2017 12:15 PM
[2017-07-07] MEDS ORDERED: ALUMINUM/MAGNESIUM/SIMETH (MAALOX MAX) 30 ML UDC PO PRN (13:15)
[2017-07-07] MEDS ORDERED: NITROGLYCERIN 0.4 MG SL PER TAB CHARGE SL PRN (13:15)
[2017-07-07] MEDS ORDERED: ONDANSETRON INJ 2 MG/ML 2 ML VIAL IV PRN (13:15)
[2017-07-07] MEDS ORDERED: ALBUTEROL HFA 8 GM INHALER INH PRN (13:15)
[2017-07-07] MEDS ORDERED: MAGNESIUM HYDROXIDE SUSP 30 ML UDC PO PRN (13:15)
[2017-07-07] MEDS ORDERED: ACETAMINOPHEN 325 MG TAB PO PRN (13:15)
[2017-07-07] MEDS ORDERED: LEVALBUTEROL/IPRATROPIUM NEB INH PRN (13:15)
[2017-07-07] MEDS ORDERED: FUROSEMIDE 40 MG/4 ML VIAL ONE (13:33)
[2017-07-07] MEDS ORDERED: FUROSEMIDE INJ 40 MG in SYRINGE 0 ML IV ONE (13:45)
[2017-07-07] MEDS ORDERED: SPRIN INH (14:04)
[2017-07-07] MEDS ORDERED: LEVALBUTEROL 1.25MG/0.5ML NEB INH PRN ×2 (14:30→14:45)
[2017-07-07] MEDS ORDERED: IPRATROPIUM BROMIDE NEB SOLN 0.02% 2.5 ML VIAL INH PRN (14:30)
[2017-07-07 14:45] VITALS: BP 134/64; PULSE 104; TEMP 36.8; O2SAT 95; Ht 170.2 cm; Wt 101.5 kg
[2017-07-07] MEDS ORDERED: LEVALBUTEROL 0.63MG/3 ML NEB INH PRN (14:45)
[2017-07-07 14:49] VITALS: BP 134/64; PULSE 81; TEMP 36.8; O2SAT 95
[2017-07-07] MEDS ORDERED: LEVALBUTEROL/IPRATROPIUM NEB INH SCH (15:00)
[2017-07-07] MEDS ORDERED: LEVALBUTEROL 1.25MG/0.5ML NEB INH SCH (15:00)
[2017-07-07 15:05] VITALS: PULSE 82; O2SAT 95
[2017-07-07] MEDS: LEVALBUTEROL 0.63MG/3 ML NEB INH SCH ×2 (15:05→20:34)
[2017-07-07] MEDS: IPRATROPIUM BROMIDE NEB SOLN 0.02% 2.5 ML VIAL INH SCH ×2 (15:05→20:34)
[2017-07-07] MEDS ORDERED: METHYLPREDNISOLONE IV 40 MG in SYRINGE 0 ML IV ONE (15:15)
--- NOTE | 2017-07-07 15:25 | HISTORY & PHYSICAL EXAMINATION ---
DATE OF ADMISSION: 07/07/2017 CHIEF COMPLAINT: Shortness of breath. HISTORY OF PRESENT ILLNESS: An 86-year-old female with past medical history significant for CAD status post stent, interstitial lung disease, chronic diastolic CHF, hyperlipidemia, history of hyperglycemia, history of anxiety, history of hypertension, who was brought in because of shortness of breath. The patient woke up today morning around 4:00 she felt that something blocking her throat and she was getting short of breath and has dry cough that prompted her to come to the ER. Currently, she is on prednisone taper possibly for bronchitis. Denies any chest pain. Denies any fever, chills. No headaches, no blurred vision, no nausea, no vomiting, no abdominal pain, has chronic lower extremity edema which is stable. Denies any diarrhea or constipation, no blood in the stools, no black stools. No blood in the urine, no burning micturition. Appetite is okay. Ambulates in the house with the help of a walker, but lately she is getting more short of breath walking short distances. Currently resting comfortably and hemodynamically stable. ALLERGIES: ACETAMINOPHEN, DIPHENHYDRAMINE aspirin, SIMVASTATIN, Loratadine PAST MEDICAL HISTORY: As mentioned above. PAST SURGICAL HISTORY: Total knee arthroplasty, CABG, LAD stent, colonoscopy with biopsy, right partial hip replacement, and total abdominal hysterectomy. MEDICATIONS: The patient is on Lasix 40 mg p.o. on Saturday, Saturday and Saturday; prednisone taper, albuterol 2 puffs inhalation every 6 hours p.r.n., amlodipine 5 mg p.o. daily, aspirin 81 mg p.o. daily, atorvastatin 80 mg p.o. daily, Colestipol 1 gram p.o. a.m., lisinopril 40 mg p.o. a.m., metoprolol tartrate 12.5 mg p.o. b.i.d., multivitamin 1 tablet p.o. daily, Zoloft 50 mg p.o. a.m., and Spiriva 1 puff daily. FAMILY HISTORY: Significant for mother had NM at the age of 75, mother had thyroid goiter. Father had black lung, at age of 77. Sister with uterine cancer. SOCIAL HISTORY: , lives with her . No smoking, no alcohol, no drug use. REVIEW OF SYMPTOMS: As per HPI. Rest of review of symptoms negative. PHYSICAL EXAMINATION: GENERAL: The patient is of moderate built, not in distress. VITAL SIGNS: Temperature 36.4, pulse 112, respiratory rate 24, blood pressure 140/100, oxygen 96% on 2 liters. HEENT: No pallor, no icterus. Pupils equal, round, and reactive to light. NECK: No JVD, no neck masses, no carotid bruits. CARDIOVASCULAR: S1, S2 heard, regular rate and rhythm, no murmur, no gallop. RESPIRATORY SYSTEM: Clear to auscultation bilaterally. No wheezing. Mild bibasilar crackles. ABDOMEN: Soft, bowel sounds present. Nontender. No distention. CENTRAL NERVOUS SYSTEM: Cranial nerves are grossly intact. Nonfocal. EXTREMITIES: Lower extremity edema present. No erythema seen. LABORATORIES: WBC 13.9, hemoglobin 14.1, hematocrit 43, platelets 168. Sodium 139, potassium 4.4, chloride 105, bicarbonate 28, BUN 21, creatinine 0.7, serum glucose 128. Calcium 9.9, total bilirubin 1.3, AST 24, ALT 33 alkaline phosphatase 151. Troponin 1 less than 0.03. PT 11.2, INR 1.1, PTT 24.5. IMAGING DATA: CT of the chest shows no PE, findings consistent with cardiogenic pulmonary edema with elevated pulmonary artery and right heart pressure like a consequence of of elevated left heart pressure, borderline mediastinal lymphadenopathy, 14 mm right adrenal gland benign adenoma, multiple old rib fractures in varying stages of healing. Chest x-ray cardiomegaly with volume overload, peripheral opacities likely chronic lung disease demonstrated on prior CT, no superimposed infiltrate. EKG shows atrial fibrillation with rate of 97 and right axis deviation, no acute ST changes seen. ASSESSMENT AND PLAN: This is an 86-year-old female presents with shortness of breath. 1. Shortness of breath most likely secondary to acute on chronic diastolic congestive heart failure and acute bronchitis and interstitial lung disease flare. 2. Acute on chronic diastolic congestive heart failure. The patient takes Lasix 40 mg on Mondays, Wednesdays and Fridays. Chest x-ray shows volume overload and has bilateral lower extremity edema. We will place her on IV Lasix 40 b.i.d. Daily weights, I's and O's and consult cardiology for further recommendation and optimization of medications. She is also Lopressor 12.5 mg p.o. b.i.d., may need to change to Toprol-XL. We will monitor on tele floor. 3. Acute bronchitis, acute interstitial lung disease flare. Continue home inhalers of Spiriva and albuterol We will also place her on Xopenex and ipratropium nebs around the clock and p.r.n. We will order a dose of IV Solu-Medrol today and place her on prednisone 40 mg daily from a.m., also azithromycin. We will consult pulmonary for further recommendations. The patient is feeling narrowed airway in throat, but there is no stridor, will closely monitor. 4. Coronary artery disease status post stent. Currently, denies any chest pain. Continue home medications of beta nidia, aspirin and statin. 5. History of hypertension. Continue amlodipine, Lopressor and lisinopril and diuretics. We will monitor the blood pressure. 6. History of hyperlipidemia. Continue statin. 7. History of chronic atrial fibrillation, controlled on Lopressor . Not on anticoagulation for history of gastrointestinal bleeding. We will monitor the heart rates and adjust medications. 8. Deep vein thrombosis prophylaxis, heparin subQ for now. 9. Disposition: Admit to tele floor, expect to discharge home and follow with her family doctor. Level 1 full code. PT and OT prior to discharge. ALMA ROSA
[2017-07-07] MEDS ORDERED: AZITHROMYCIN 250 MG TAB PO ONE (15:30)
--- NOTE | 2017-07-07 15:43 | EMERGENCY ROOM VISIT NOTE ---
History Report prepared by Tara: Alexus Newton Under the Supervision of: Dr. Juan Jose Sheth M.D. First contact with patient: 11:15 Chief Complaint: SHORTNESS OF BREATH Stated Complaint: SOB Nursing Triage Summary: pt wears o2 at hs and normally has some sob. pt states today at 4 am sudden onset of severe sob and feeling of "swelling or thickness in throat" denies pain pt denies hx of afib History of Present Illness The patient is an 86 year old female who presents to the Emergency Room with complaints of persistent SOB starting 0400 this morning. She states that she has had some SOB for the past 4 years, but this morning it worsened. She feels some tightness in her throat. She had a dry cough this morning. She denies any chest pain, fever, vomiting, diarrhea, black or bloody stools, pain or swelling in the legs, upper back pain. She is feeling well besides the SOB. She is normally not on oxygen. She denies any history of clots in the lung or irregular heart rhythm. Source of History: patient Onset: 0400 Position: other (global) Quality: other (SOB) Timing: other (persistent) Associated Symptoms: + cough, No fevers, No chest pain, No vomiting, No back pain, No melena, No hematochezia, No diarrhea Note: Pt reports throat tightness. Pt denies leg pain/swelling. Review of Systems See HPI for pertinent positives & negatives. A total of 10 systems reviewed and were otherwise negative. Past Medical & Surgical Medical Problems: (1) A-fib (2) Benign neoplasm of colon (3) Coronary angioplasty (4) Coronary artery bypass grafting (5) Diastolic CHF (6) Diastolic heart failure (7) Dyslipidemia (8) HTN (hypertension) (9) Hypertensive urgency (10) Intestinal cauterization (11) Lower gastrointestinal hemorrhage (12) Paroxysmal a-fib (13) Respiratory failure, acute (14) Total replacement of hip Surgical Problems: (1) H/O: hysterectomy (2) History of coronary artery stent placement (3) S/P TKR (total knee replacement) Family History Patient reports no known family medical history. Social History Smoking Status: Never Smoker Alcohol Use: none Drug Use: none Marital Status: Housing Status: lives with family Occupation Status: retired Current/Historical Medications Scheduled Amlodipine (Norvasc), 5 MG PO QAM Aspirin (Aspirin 81), 81 MG PO QAM Atorvastatin (Lipitor), 80 MG PO QPM Colestipol Hcl (Colestid), 1 GM PO QAM Furosemide (Lasix), 40 MG PO MWF Lisinopril (Zestril), 40 MG PO QAM Metoprolol Tartrate (Lopressor) (Lopressor), 12.5 MG PO BID Multivitamin (Multivitamin), 1 TAB PO QAM Prednisone (Prednisone), 10 MG PO BID Sertraline (Zoloft), 50 MG PO QAM Tiotropium Anderson (Spiriva Handihaler), 1 PUFF INH DAILY Scheduled PRN Albuterol Hfa (Ventolin Hfa), 2-4 PUFFS INH Q6H PRN for SOB/Wheezing Allergies Coded Allergies: Acetaminophen (Verified Allergy, Intermediate, Hives., 07/07/17) Diphenhydramine (Verified Allergy, Unknown, unknown, 07/07/17) Fexofenadine (Verified Allergy, Unknown, UNKNOWN, 07/07/17) NSAIDs (Verified Adverse Reaction, Intermediate, ASA = BLEEDING, 07/07/17) Ezetimibe (Verified Adverse Reaction, Unknown, Nervous and jittery., 07/07) Simvastatin (Verified Adverse Reaction, Unknown, Jittery and anxious., ) Physical Exam Vital Signs Date Time Temp Pulse Resp B/P (MAP) Pulse Ox O2 Delivery O2 Flow Rate FiO2 07/07/17 12:55 103 07/07/17 12:31 128 07/07/17 12:25 109 95 07/07/17 11:47 112 24 144/100 96 Nasal Cannula 2.0 07/07/17 11:46 144/100 07/07/17 11:25 103 24 95 07/07/17 10:59 Nasal Cannula 2.0 07/07/17 10:59 95 Nasal Cannula 2.0 07/07/17 10:55 118 31 07/07/17 10:55 95 Nasal Cannula 2.0 07/07/17 10:49 100 07/07/17 10:32 Room Air 07/07/17 10:32 36.4 92 26 132/59 93 Room Air Physical Exam Constitutional: Vital signs reviewed. Eyes: Pupils are equal round reactive to light. Conjunctiva are noninjected. ENT: Pharynx is clear without erythema or exudate. Mucous membranes are moist. Neck supple without meningeal signs. Respiratory: Clear to auscultation bilaterally. Breath sounds are equal bilaterally. Cardiovascular: Irregularly irregular rhythm. Tachycardic. No rubs or gallops. GI: Soft, nondistended and nontender. Bowel sounds are present. Musculoskeletal: No peripheral edema. No lower extremity tenderness. Integumentary: No cyanosis. Neurological: The patient is awake and alert. No focal deficits. Psychiatric: Anxious. Medical Decision & Procedures ER Provider Diagnostic Interpretation: X-ray results as stated below per interpretation by me and the radiologist. Radiology results as stated below per my review and the radiologist's interpretation: CHEST ONE VIEW PORTABLE CLINICAL HISTORY: 86 years-old Female presenting with sob. TECHNIQUE: Portable upright AP view of the chest was obtained. COMPARISON: 06/07/2017. FINDINGS: Atherosclerosis of aortic arch. Cardiac silhouette moderately enlarged as on prior exam. Pulmonary vascular prominence. Peripheral predominant hazy and reticular opacities. Previously noted 11 mm right lower lobe nodule on CT from 04/29/2017 is not radiographically apparent allowing for portable AP technique. No large effusion or pneumothorax. Degenerative changes of the glenohumeral joints, right greater than left. Surgical clips in the right breast project over the right upper quadrant. IMPRESSION: 1. Cardiomegaly with volume overload. 2. Peripheral opacities likely chronic lung disease as demonstrated on prior CT from 04/29/2017. No new superimposed infiltrate. 3. Previously noted right lower lobe nodule on CT is not apparent on this radiograph. Follow-up is recommended. Please see previously dictated CT report. Electronically signed by: Damir Rodriguez M.D. 07/07/2017 11:35 AM Dictated Date/Time: 07/07/2017 11:32 AM (CHEST FOR PE) ANGIO WITH CLINICAL HISTORY: 86 years-old Female presenting with ^sob eval for PE, chest pain. TECHNIQUE: Multidetector CT angiography of the chest was performed after administration of intravenous contrast. 3-D volumetric and/or maximum intensity projection (MIP) images were subsequently reconstructed for review. IV contrast: 93 mL of Optiray 320. A dose lowering technique was used consistent with the principles of ALARA (as low as reasonably achievable). COMPARISON: 04/29/2017. CT DOSE (mGy.cm): The estimated cumulative dose is 676.40 mGy.cm. FINDINGS: [employer] topogram: Cardiomegaly. Pulmonary vasculature: The study is suboptimal for the assessment of pulmonary embolus secondary to respiratory motion artifact. Allowing for this, no central filling defect. Evaluation of segmental and subsegmental pulmonary arteries is slightly limited. Main pulmonary artery is enlarged measuring 4.4 cm in diameter. The right and left pulmonary arteries are also enlarged as are the segmental and subsegmental arteries. No flattening of the interventricular septum. No intracardiac intracardiac filling defect. Mild reflux of contrast into the intrahepatic IVC suggesting elevated right heart pressure. Remaining chest: On soft tissue windows, few small nodules in the thyroid, one of which in the right lobe is calcified. Calcified focus in the left breast, possibly degenerated fibroadenoma. Several subcentimeter lymph nodes in the mediastinum in the prevascular and precarinal regions, measuring up to 10 mm in the short axis. Atherosclerosis of the aorta. The branch vessels of the aortic arch are tortuous likely implying chronic hypertension. Multichamber enlargement of the heart. Aortic valve, coronary artery, and mitral annular calcification. Persistent small pericardial effusion not significantly changed from prior exam. No gross evidence of pericardial nodularity. No pleural effusion. 14 mm right adrenal gland nodule with a density consistent with benign adenoma. On lung windows, patchy groundglass opacity well joint dated by smooth interlobular septal thickening consistent with a crazy painting pattern. Dependent reticulation also noted. Respiratory artifact obscures the pulmonary architecture at the lung bases. Central airways patent. Peripheral areas poorly assessed. On bone windows, degenerative changes of the spine. Degenerative changes of the bilateral glenohumeral joints. Multiple old right rib fractures noted in varying stages of healing. IMPRESSION: 1. Allowing for motion artifact degradation, no evidence of central pulmonary embolus. 2. Findings consistent with cardiogenic pulmonary edema with elevated pulmonary arterial and right heart pressures likely a consequence of elevated left heart pressure. 3. Borderline mediastinal lymphadenopathy. 4. 14 mm right adrenal gland benign adenoma. 5. Multiple old right rib fractures in varying stages of healing. Electronically signed by: Damir Rodriguez M.D. 07/07/2017 12:24 PM Dictated Date/Time: 07/07/2017 12:15 PM Laboratory Results 07/07/17 10:55 Red Blood Count 4.71, Mean Corpuscular Volume 91.3, Mean Corpuscular Hemoglobin 29.9, Mean Corpuscular Hemoglobin Concent 32.8, Mean Platelet Volume 10.7, Neutrophils (%) (Auto) 85.7, Lymphocytes (%) (Auto) 6.9, Monocytes (%) (Auto) 4.1, Eosinophils (%) (Auto) 2.6, Basophils (%) (Auto) 0.3, Neutrophils # (Auto) 11.98, Lymphocytes # (Auto) 0.96, Monocytes # (Auto) 0.58, Eosinophils # (Auto) 0.36, Basophils # (Auto) 0.04 07/07/17 10:55 Test 07/07/17 10:55 07/07/17 11:04 White Blood Count 13.98 K/uL (4.8-10.8) Red Blood Count 4.71 M/uL (4.2-5.4) Hemoglobin 14.1 g/dL (12.0-16.0) Hematocrit 43.0 % (37-47) Mean Corpuscular Volume 91.3 fL (80-100) Mean Corpuscular Hemoglobin 29.9 pg (25-34) Mean Corpuscular Hemoglobin Concent 32.8 g/dl (32-36) Platelet Count 168 K/uL (130-400) Mean Platelet Volume 10.7 fL (7.4-10.4) Neutrophils (%) (Auto) 85.7 % Lymphocytes (%) (Auto) 6.9 % Monocytes (%) (Auto) 4.1 % Eosinophils (%) (Auto) 2.6 % Basophils (%) (Auto) 0.3 % Neutrophils # (Auto) 11.98 K/uL (1.4-6.5) Lymphocytes # (Auto) 0.96 K/uL (1.2-3.4) Monocytes # (Auto) 0.58 K/uL (0.11-0.59) Eosinophils # (Auto) 0.36 K/uL (0-0.5) Basophils # (Auto) 0.04 K/uL (0-0.2) RDW Standard Deviation 50.3 fL (36.4-46.3) RDW Coefficient of Variation 14.9 % (11.5-14.5) Immature Granulocyte % (Auto) 0.4 % Immature Granulocyte # (Auto) 0.06 K/uL (0.00-0.02) Prothrombin Time 11.2 SECONDS (9.0-12.0) Prothromb Time International Ratio 1.1 (0.9-1.1) Activated Partial Thromboplast Time 24.5 SECONDS (21.0-31.0) Partial Thromboplastin Ratio 0.9 Anion Gap 6.0 mmol/L (3-11) Estimated GFR () 83.8 Estimated GFR (Non- 72.3 BUN/Creatinine Ratio 28.1 (10-20) Calcium Level 9.0 mg/dl (8.5-10.1) Total Bilirubin 1.3 mg/dl (0.2-1) Aspartate Amino Transf (AST/SGOT) 24 U/L (15-37) Alanine Aminotransferase (ALT/SGPT) 33 U/L (12-78) Alkaline Phosphatase 151 U/L (45-117) Total Protein 6.8 gm/dl (6.4-8.2) Albumin 3.0 gm/dl (3.4-5.0) Globulin 3.8 gm/dl (2.5-4.0) Albumin/Globulin Ratio 0.8 (0.9-2) Bedside Troponin I < 0.030 ng/ml (0-0.045) Laboratory results as reviewed by me. ECG Indication: SOB/dyspnea Rate (beats per minute): 97 Rhythm: atrial fibrillation Findings: other (rightward axis, QRS 70 ms) ED Course 1121: The patient was evaluated in room B2. A complete history and physical exam was performed. 1230: Upon reevaluation, the patient was still in atrial fibrillation with a rate of 108-120. She was able to walk from the bathroom. I discussed the test results with her. She verbalized agreement of the treatment plan. She will be evaluated for further management. 1235: I spoke with Dr. Hope of [facility]. We discussed the patient and her results. The patient will be further evaluated by him. Medical Decision This is an 78-year-old female who presents with shortness of breath. Differential diagnosis includes interstitial lung disease, pneumonia, pneumothorax, pulmonary embolism, anemia, NC. I did perform a limited focused review of portions of the patient's old chart on the electronic medical record. The patient was admitted January of last year for respiratory failure. She has interstitial lung disease. I did evaluate the patient as noted above. IV access was established. The patient was placed on a continuous vehicle monitor technician. I did order and personally review the patient's 12-lead EKG and chest x-ray as described above. The patient has new onset atrial fibrillation with RVR. I did order and review the patient's blood work as noted in the electronic medical record. I did order a CT of the chest. I did review the images myself as well as the radiology report as described above. There is no evidence of pulmonary embolism. I did discuss the test results with the patient and her . I did recommend hospitalization for further care and evaluation. I did discuss case with the hospitalist and adult protective caseworker. Medication Reconcilliation Current Medication List: was personally reviewed by me Blood Pressure Screening Patient's blood pressure: Elevated blood pressure Blood pressure disposition: Referred to PCP Consults Time Called: 1233 Consulting Physician: Dr. Hope of [facility] Returned Call: 1235 I spoke with him. We discussed the patient and her results. The patient will be further evaluated by him. Impression Primary Impression: New onset atrial fibrillation Additional Impressions: Atrial fibrillation with RVR Interstitial lung disease Scribe Attestation The scribe's documentation has been prepared under my direct and personally reviewed by me in its entirety. I confirm that the note above accurately reflects all work, treatment, procedures, and medical decision making performed by me. Departure Information Dispostion Being Evaluated By Hospitalist Prescriptions Prednisone (Prednisone) 10 Mg Tab 10 MG PO BID, #1 ON TAPER Prov: Forrest Hope MD 07/07/17 Tiotropium Anderson (Spiriva Handihaler) 5 Puff/90 Mcg Aerp 1 PUFF INH DAILY, #1 Prov: Forrest Hope MD 07/07/17 Referrals Manuel Garcia III, M.D. (PCP) Patient Instructions My [facility] Problem Qualifiers
--- NOTE | 2017-07-07 19:15 | Pulmonary Consultation ---
History General Date of Service: Jul 07, 2017. Stated Complaint: A-Fib, Diastolic Chf HPI The patient is a 86 year old female who presents to [facility] with complaints of A-Fib, Diastolic Chf. The patient's primary care provider is Manuel Garcia III, M.D.. 78-year-old female admitted for acute on chronic shortness of breath. The patient has been experiencing shortness of breath for 5 year window and has had multiple physicians look at her even the [facility] with no definitive answers. Earlier this morning at 4 a.m. she notice something caught in her throat this will current since then she has been experiencing progressive dyspnea. She notes prior to that she had no fevers, chills, chest pain, pleurisy, productive cough or classic cardiac chest pain. Even during our interview the patient denied any of these issues. She does have a PmHx: Significant for severe kyphosis, chronic diastolic heart failure, pulmonary nodule right lower lobe and unexplained chronic hypoxia. The patient does note chronic lower extremity edema especially towards the end of the days over that 5 year window. urrent workup EKG: Atrial fibrillation, rate 97 WBC: 14K (Neutro#: 11.98) BUN: 21 Cr: 0.74 Alb: 3.0 T Bili: >1.3 Troponin: <0.030 Alk phos: >151 Previous workup Nuclear medicine cardiac stress test (performed a [facility]) 10/03/2015 Left ventricle: Normal in size and normal function, LVEF=75% Right ventricle: Normal in size and function Perfusion study: Within normal limits No evidence of scarred myocardium No evidence of inducible ischemia Low risk scan V/Q scan 06/07/2017 Low probability for pulmonary embolism Pulmonary function study 03/05/2017 FEV1/FVC 87 FEV1 1.70/85% FVC 1.95/60% Bronchodilator no significant response TLC 4.98/90% SVC 2.44/87% RV/TLC 51 DLCO 71% DL/VA: 129 Echocardiogram 09/06/2015 Left ventricle: EF>70%: Left ventricular hypertrophy Right ventricle: TAPSE >1.5cm Left atrium: Moderately dilated CT of the abdomen 11/15/2013 Right lower lobe nodule [address] of the abdomen 11/16/2013 Right lower lobe nodule [address] thorax 12/25/2009 Cannot appreciate the right lower lobe nodule CT angiogram 12/26/2009 Cannot appreciate the right lower lobe nodule PmHx: 1. Arm pain, anterior, right 2. Chronic diastolic heart failure 3. Coronary artery disease /status post stent 4. Dyspnea, unspecified type 5. Hypoxia 6. Lung nodule, solitary 7. Pericardial effusion 8. Polyneuropathy 9. Pulmonary hypertension 10. Interstitial lung disease 11. Chronic diastolic heart failure 12. Hyperlipidemia 13. Anxiety Surgical History 1. History of Back Surgery 2. History of Hip Surgery 3. History of Knee Surgery Social History Denied: History of Drug use Non smoker Denied: History of Social alcohol use Current Meds 1. Stiolto Respimat 2.5-2.5 MCG/ACT Inhalation Aerosol Solution; 2 puffs daily 2. AmLODIPine Besylate 5 MG Oral Tablet; TAKE 1 TABLET DAILY 3. Aspirin 81 MG Oral Tablet Delayed Release; TAKE 1 TABLET DAILY 4. Atorvastatin Calcium 80 MG Oral Tablet; TAKE 1 TABLET AT BEDTIME 5. Colestipol HCl - 1 GM Oral Tablet; TAKE 1 TABLET DAILY 6. Coreg 25 MG Oral Tablet; TAKE 1 TABLET TWICE DAILY 7. Furosemide 40 MG Oral Tablet; TAKE 1 TABLET DAILY DIRECTED 8. Lisinopril 40 MG Oral Tablet; TAKE 1 TABLET EVERY DAY 9. Metoprolol Tartrate 25 MG Oral Tablet; TAKE 0.5 TABLET Twice daily 10. Multivitamins Oral Capsule; TAKE 1 CAPSULE DAILY 11. [place] 3 1000 MG Oral Capsule; 12. Ventolin HFA 108 (90 Base) MCG/ACT Inhalation Aerosol Solution; INHALE 2 PUFFS Historian: patient, EMS Review of Systems Constitutional: reports: as stated in HPI Eyes: reports: no symptoms ENT: reports: no symptoms Cardiovascular: reports: as stated in HPI Respiratory: reports: as stated in HPI Gastrointestinal: reports: no symptoms Genitourinary - Female: reports: no symptoms Musculoskeletal: reports: no symptoms Integumentary: reports: no symptoms Neurologic: reports: no symptoms Psychiatric: reports: no symptoms Endocrine: no symptoms Hematologic / Lymphatic: no symptoms Allergic / Immunologic: no symptoms Past Medical History Past Medical History: Please refer to HPI Past Surgical History: Please refer to HPI Family History Patient reports no known family medical history. Please refer to HPI Social History Please refer to HPI Hx Tobacco Use In Past Year?: No Smoking Status: Never Smoker Alcohol: never Marital status: Housing status: lives with family Occupational Status: retired Immunizations History of Influenza Vaccine: N/A Influenza Vaccine Date: Jul 20, 2009 History of Tetanus Vaccine?: Yes Tetanus Immunization Date: Jun 23, 2007 History of Pneumococcal: Yes Pneumococcal Date: May 07, 2005 History of Hepatitis B Vaccine: No History of MDRO History of MDRO: No Allergies Coded Allergies: Acetaminophen (Verified Allergy, Intermediate, Hives., 07/07/17) Diphenhydramine (Verified Allergy, Unknown, unknown, 07/07/17) Fexofenadine (Verified Allergy, Unknown, UNKNOWN, 07/07/17) NSAIDs (Verified Adverse Reaction, Intermediate, ASA = BLEEDING, 07/07/17) Ezetimibe (Verified Adverse Reaction, Unknown, Nervous and jittery., 07/07) Simvastatin (Verified Adverse Reaction, Unknown, Jittery and anxious., ) Current Medications Reported Home Medications Medications Dose Route/Sig Max Daily Dose Days Date Category Dose Instructions Prednisone 10 Mg Tab 10 Mg PO BID 07/07/17 Rx ON TAPER Spiriva Handihaler (Tiotropium [place]) 5 Puff/90 Mcg Aerp 1 Puff INH DAILY 07/07/17 Rx Ventolin Hfa (Albuterol) 200 Puffs/79262 Mcg Aers 2-4 Puffs INH Q6H PRN 12/11/16 Reported Multivitamin (Multivitamins) Tab 1 Tab PO QAM 12/11/16 Reported Aspirin 81 (Aspirin) 81 Mg Tab 81 Mg PO QAM 12/11/16 Reported Colestid (Colestipol Hcl) 1 Gm Tab 1 Gm PO QAM 12/11/16 Reported Norvasc (Amlodipine Besylate) 5 Mg Tab 5 Mg PO QAM 12/11/16 Reported Lasix (Furosemide) 40 Mg Tab 40 Mg PO MWF 12/11/16 Reported Lipitor (Atorvastatin Calcium) 80 Mg Tab 80 Mg PO QPM 12/11/16 Reported Lopressor (Metoprolol Tartrate) 25 Mg Tab 12.5 Mg PO BID 12/11/16 Reported Zoloft (Sertraline HCl) 50 Mg Tab 50 Mg PO QAM 12/11/16 Reported Zestril (Lisinopril) 40 Mg Tab 40 Mg PO QAM 12/11/16 Reported Physical Physical Exam Vital Signs: Date Time Temp Pulse Resp B/P (MAP) Pulse Ox O2 Delivery O2 Flow Rate FiO2 07/07/17 16:00 Nasal Cannula 2.0 07/07/17 15:05 82 20 95 Nasal Cannula 3.0 07/07/17 14:49 36.8 81 22 134/64 (87) 95 Nasal Cannula 2.0 07/07/17 14:45 36.8 104 22 134/64 95 Nasal Cannula 2.0 07/07/17 13:55 24 07/07/17 13:38 145/99 07/07/17 12:55 103 07/07/17 12:31 128 07/07/17 12:25 109 95 07/07/17 11:47 112 24 144/100 96 Nasal Cannula 2.0 07/07/17 11:46 144/100 07/07/17 11:25 103 24 95 07/07/17 10:59 Nasal Cannula 2.0 07/07/17 10:59 95 Nasal Cannula 2.0 07/07/17 10:55 118 31 07/07/17 10:55 95 Nasal Cannula 2.0 07/07/17 10:49 100 07/07/17 10:32 Room Air 07/07/17 10:32 36.4 92 26 132/59 93 Room Air General Appearance: moderate distress Head: NORMOCEPHALIC, ATRAUMATIC Eyes: PERRLA, NO DISCHARGE, EOMI, SCLERAE NORMAL ENT: NORMAL EAR EXAM, NORMAL NASAL EXAM, NORMAL MOUTH EXAM, NORMAL THROAT EXAM , NORMAL DENTAL EXAM Neck: NORMAL RANGE OF MOTION, NO TENDERNESS, TRACHEA MIDLINE Respiratory: other (Crackles at the bases bilaterally) Cardiovasular: REGULAR RATE/RHYTHM, NORMAL S1S2, other (Distant heart sounds unable to auscultate for murmurs rubs or gallops) Abdomen: NON TENDER, NORMAL BOWEL SOUNDS, NO REBOUND, NO MASSES, NO GUARDING Genitourinary - Female: EXTERNAL GENITALIA NORMAL Back: NORMAL INSPECTION, NO MIDLINE TENDERNESS, NO CVA TENDERNESS, NO PARAVERTEBRAL TTP Upper Extremities: NO EDEMA, NO DEFORMITY, NORMAL ROM Lower Extremities: edema Edema: Bilateral LE (1+) Pulses: carotid (R) (2+), carotid (L) (2+), dorsalis pedis (R) (1+), dorsalis pedis (L) (1+) Neuro: ALERT, ORIENTED x 3, NORMAL MOTOR EXAM, NORMAL SENSATION, NORMAL CEREBELLAR EXAM Reflexes: biceps (R) (2+), bicpes (L) (2+), patellar (R) (2+), patellar (L) (2+ ) Babinski Testing: right (downgoing), left (downgoing) Psychiatric: NORMAL AFFECT, NO SUICIDAL IDEATION Diagnostics Labs Results Past 24 Hours Test 07/07/17 10:55 07/07/17 11:04 Range/Units White Blood Count 13.98 4.8-10.8 K/uL Red Blood Count 4.71 4.2-5.4 M/uL Hemoglobin 14.1 12.0-16.0 g/dL Hematocrit 43.0 37-47 % Mean Corpuscular Volume 91.3 80-100 fL Mean Corpuscular Hemoglobin 29.9 25-34 pg Mean Corpuscular Hemoglobin Concent 32.8 32-36 g/dl Platelet Count 168 130-400 K/uL Mean Platelet Volume 10.7 7.4-10.4 fL Neutrophils (%) (Auto) 85.7 % Lymphocytes (%) (Auto) 6.9 % Monocytes (%) (Auto) 4.1 % Eosinophils (%) (Auto) 2.6 % Basophils (%) (Auto) 0.3 % Neutrophils # (Auto) 11.98 1.4-6.5 K/uL Lymphocytes # (Auto) 0.96 1.2-3.4 K/uL Monocytes # (Auto) 0.58 0.11-0.59 K/uL Eosinophils # (Auto) 0.36 0-0.5 K/uL Basophils # (Auto) 0.04 0-0.2 K/uL RDW Standard Deviation 50.3 36.4-46.3 fL RDW Coefficient of Variation 14.9 11.5-14.5 % Immature Granulocyte % (Auto) 0.4 % Immature Granulocyte # (Auto) 0.06 0.00-0.02 K/uL Prothrombin Time 11.2 9.0-12.0 SECONDS Prothromb Time International Ratio 1.1 0.9-1.1 Activated Partial Thromboplast Time 24.5 21.0-31.0 SECONDS Partial Thromboplastin Ratio 0.9 Sodium Level 139 136-145 mmol/L Potassium Level 4.4 3.5-5.1 mmol/L Chloride Level 105 98-107 mmol/L Carbon Dioxide Level 28 21-32 mmol/L Anion Gap 6.0 3-11 mmol/L Blood Urea Nitrogen 21 7-18 mg/dl Creatinine 0.74 0.60-1.20 mg/dl Estimated GFR () 83.8 Estimated GFR (Non- 72.3 BUN/Creatinine Ratio 28.1 10-20 Random Glucose 128 70-99 mg/dl Calcium Level 9.0 8.5-10.1 mg/dl Total Bilirubin 1.3 0.2-1 mg/dl Aspartate Amino Transf (AST/SGOT) 24 15-37 U/L Alanine Aminotransferase (ALT/SGPT) 33 12-78 U/L Alkaline Phosphatase 151 45-117 U/L Total Protein 6.8 6.4-8.2 gm/dl Albumin 3.0 3.4-5.0 gm/dl Globulin 3.8 2.5-4.0 gm/dl Albumin/Globulin Ratio 0.8 0.9-2 Bedside Troponin I < 0.030 0-0.045 ng/ml Diagnostic Radiology Please refer to HPI EKG Please refer to HPI Impression Assessment and Plan 86-year-old female with acute on chronic dyspnea: 1. Dyspnea: The patient's etiology of her dyspnea has been well worked up from local doctors as well as over at the [facility]. At this time she does have pulmonary function test performed 03/05/2017 which only show mild restrictive ventilatory disease with an FVC of 60 % most likely associated with her kyphosis. A CT of the chest does show enlarged pulmonary artery suggesting possible pulmonary hypertension. This would be most likely secondary to group 2 and/or possibly group (RVD/kyphosis). It is possible that the patient's chronic and progressive dyspnea secondary diastolic dysfunction I suggest we perform right heart catheterization on this patient at this time. Should also note the patient has had a V/Q scan on 06/07/2017 to rule out chronic thromboembolic disease this study notes low probability. Once again the suggests there is underlying diastolic dysfunction/pulmonary hypertension from group 2 and/or possibly group 3. 2. Pulmonary nodule: Patient does have a 10 mm right lower lobe pulmonary nodule which has been worked up as an outpatient. With CT scans as well as PET- CT imaging. The PET-CT scan performed 05/13/2017 showed no signs of avidity. Also after reviewing this patient's CT images I can see the nodule back on his CT of the abdomen performed 02/11/2014. As this nodule has stayed stable over the last 3 years no further workup is necessary at this time.
[2017-07-07 19:42] VITALS: BP 155/77; PULSE 114; TEMP 36.7; O2SAT 94
[2017-07-07 20:34] VITALS: PULSE 81; O2SAT 95
[2017-07-07] MEDS: METOPROLOL TARTRATE 25 MG TAB PO SCH (20:38)
[2017-07-07] MEDS: ATORVASTATIN 40 MG TAB PO SCH (20:38)
[2017-07-07] MEDS: HEPARIN SOD 5000 UNIT/0.5 ML CARP SQ SCH (20:44)
[2017-07-07 21:34] LABS: CKMB/CK RATIO 3.5 (0-3.0)
[2017-07-07 23:19] VITALS: BP 126/74; PULSE 87; TEMP 36.6; O2SAT 94
[2017-07-08] VITALS (13 sets, daily range): BP systolic 100–148; BP diastolic 70–91; PULSE 53–109; TEMP 36.3–36.6; O2SAT 92–98
[2017-07-08] MEDS: LEVALBUTEROL 0.63MG/3 ML NEB INH SCH ×4 (01:49→20:21)
[2017-07-08] MEDS: IPRATROPIUM BROMIDE NEB SOLN 0.02% 2.5 ML VIAL INH SCH ×4 (01:49→20:21)
[2017-07-08 05:16] LABS: BASO % 0.2 %; BASO ABS # 0.02 K/uL (0-0.2); COMPLETE YES; EOS % 0.1 %; IG% 0.5 %; LYMPH % 8.1 %; LYMPH ABS # 0.77 K/uL (1.2-3.4); MEAN CELL VOLUME 90.7 fL (80-100); MEAN CORPUSCULAR HEMOGLOBIN 29.8 pg (25-34); MEAN CORPUSCULAR HGB CONC 32.9 g/dl (32-36); MONO % 5.8 %; NEUT % 85.3 %; PLATELET COUNT 179 K/uL (130-400); RED BLOOD COUNT 4.63 M/uL (4.2-5.4); WHITE BLOOD COUNT 9.56 K/uL (4.8-10.8)
[2017-07-08 05:47] LABS: BLOOD UREA NITROGEN 23 mg/dl (7-18); BUN/CREATININE RATIO 30.6 (10-20); CALCIUM 9.3 mg/dl (8.5-10.1); CARBON DIOXIDE 30 mmol/L (21-32); CHLORIDE 103 mmol/L (98-107); CREATININE 0.77 mg/dl (0.60-1.20); GLUCOSE 146 mg/dl (70-99); MAGNESIUM 2.1 mg/dl (1.8-2.4); POTASSIUM 4.1 mmol/L (3.5-5.1); SODIUM 136 mmol/L (136-145)
[2017-07-08 05:52] LABS: CKMB/CK RATIO 3.8 (0-3.0)
[2017-07-08] MEDS: HEPARIN SOD 5000 UNIT/0.5 ML CARP SQ SCH ×3 (06:25→21:06)
[2017-07-08] MEDS: SERTRALINE HCL 50 MG TAB PO SCH (08:25)
[2017-07-08] MEDS: METOPROLOL TARTRATE 25 MG TAB PO SCH ×2 (08:25→21:04)
[2017-07-08] MEDS: COLESTIPOL HCL 1 GM TAB PO SCH (08:25)
[2017-07-08] MEDS: LISINOPRIL 40 MG TAB PO SCH (08:26)
[2017-07-08] MEDS: AMLODIPINE BESYLATE 5 MG TAB PO SCH (08:26)
[2017-07-08] MEDS: ASPIRIN 81 MG ECTAB PO SCH (08:26)
[2017-07-08] MEDS: AZITHROMYCIN 250 MG TAB PO SCH (08:27)
[2017-07-08] MEDS: MULTIVITAMIN TAB PO SCH (08:27)
[2017-07-08] MEDS: FUROSEMIDE INJ 40 MG in SYRINGE 0 ML IV SCH ×2 (08:49→18:26)
[2017-07-08] MEDS ORDERED: TIOTROPIUM BROMIDE 5 PUFF/90 MCG INH INH SCH (09:00)
[2017-07-08] MEDS ORDERED: MICONAZOLE NITRATE POWDER 43 GM EXT PRN (11:15)
[2017-07-08] MEDS ORDERED: NURSING VERBAL MED ORDER ONE (11:15)
--- NOTE | 2017-07-08 11:54 | Cardiology Consultation ---
Cardiology Consultation Date of Service Jul 08, 2017. (Carol Castaneda, SANDRA) Cardiology Consultation SUBJECTIVE: Patient is a 86-year-old female who presents today [place] with complaints of worsening dyspnea x 1 week. She has followed with [facility] as an outpatient, having been evaluated in the past by Dr. Fitzgerald and the undersigned. She has a long history of dyspnea, being evaluated at multiple facilities and diagnosed with unspecified Interstitial lung disease and possible reactive airway disease. She has a history of CAD s/p remote LAD Stent with last nuclear stress test in 2015, negative for inducible ischemia, performed at [facility]. She reports significant dyspnea with any activities recently, including getting dressed and ambulating to bathroom. She denies recent weight gain. Weight on admission less than weight at last office visit in December 2016. She notes LE edema , worse as the day goes on, but nothing significant. She does admit to significant orthopnea at times. She wears O2 at night but not during the day on a regular basis. No recent chest pain. SHe takes furosemide 40 mg on //. There is also a prescription for furosemide 40 mg BID on [email or web address] list but she states she does not take this dose. Upon arrival to ER she was treated with steroids, nebs, antibiotics, and IV furosemide. EKG without ischemic changes. Cardiac enzymes unremarkable. Chest CT demonstrates possibly pulmonary edema. No PE At time of consult, patient admits to continued significant dyspnea with minimal activities. Notable conversational dyspnea present. No chest pain. No significant improvement in dyspnea since admission. She denies edema, palpitations, cough, fever, chills. Medical Problems: (1) A-fib (2) Benign neoplasm of colon (3) Coronary angioplasty (4) Coronary artery bypass grafting (5) Diastolic CHF (6) Diastolic heart failure (7) Dyslipidemia (8) HTN (hypertension) (9) Hypertensive urgency (10) Intestinal cauterization (11) Lower gastrointestinal hemorrhage (12) Paroxysmal a-fib (13) Respiratory failure, acute (14) Total replacement of hip Surgical Problems: (1) H/O: hysterectomy (2) History of coronary artery stent placement (3) S/P TKR (total knee replacement) Family History Lung Disorder Father black lung @77 Thyroid Disorder Mother goiter Heart Disorder Mother LA @75 Cancer Sister Uterine Social History Substance Use Topics Smoking status: Never Smoker Smokeless tobacco: Never Used Comment: no passive smoke exposures Alcohol use No Review of patient's allergies indicates: Acetaminophen - Hives Asa [Aspirin] - bleeding Ezetimibe-Simvastatin - Nervous, jittery Loratadine - rash Simvastatin - pateint states she gets jittery and anxious. Current Outpatient Prescriptions Reported Home Medications Medications Dose Route/Sig Max Daily Dose Days Date Category Dose Instructions Prednisone 10 Mg Tab 10 Mg PO BID 07/07/17 Rx ON TAPER Spiriva Handihaler (Tiotropium [place]) 5 Puff/90 Mcg Aerp 1 Puff INH DAILY 07/07/17 Rx Ventolin Hfa (Albuterol) 200 Puffs/26322 Mcg Aers 2-4 Puffs INH Q6H PRN 12/11/16 Reported Multivitamin (Multivitamins) Tab 1 Tab PO QAM 12/11/16 Reported Aspirin 81 (Aspirin) 81 Mg Tab 81 Mg PO QAM 12/11/16 Reported Colestid (Colestipol Hcl) 1 Gm Tab 1 Gm PO QAM 12/11/16 Reported Norvasc (Amlodipine Besylate) 5 Mg Tab 5 Mg PO QAM 12/11/16 Reported Lasix (Furosemide) 40 Mg Tab 40 Mg PO MWF 12/11/16 Reported Lipitor (Atorvastatin Calcium) 80 Mg Tab 80 Mg PO QPM 12/11/16 Reported Lopressor (Metoprolol Tartrate) 25 Mg Tab 12.5 Mg PO BID 12/11/16 Reported Zoloft (Sertraline HCl) 50 Mg Tab 50 Mg PO QAM 12/11/16 Reported Zestril (Lisinopril) 40 Mg Tab 40 Mg PO QAM 12/11/16 Reported OBJECTIVE/PHYSICAL EXAMINATION: Last 8 Hrs Date Time Temp Pulse Resp B/P (MAP) Pulse Ox O2 Delivery O2 Flow Rate FiO2 07/08/17 08:29 101 22 131/72 (91) 97 Nasal Cannula 2.0 07/08/17 07:22 36.6 65 22 140/90 (107) 97 Nasal Cannula 2.0 07/08/17 07:19 65 16 97 Nasal Cannula 2.0 07/08/17 05:04 36.3 109 22 142/91 (108) 92 Nasal Cannula 2.0 07/08/17 04:00 95 Nasal Cannula 2.0 07/08/17 01:51 53 16 96 Nasal Cannula 3.0 General: NAD, AAO x3. Obese +conversational dyspnea noted. Chronically ill. HEENT: Normocephalic. Atraumatic. PERRL. Conjunctiva pink, no scleral icterus. No carotid bruits, the carotid upstrokes are brisk. No JVD. No HJR Heart: Irregular normal S1 and S2 no S3 or S4 gallop. No murmurs or rubs appreciated. PMI is not displaced. No RV heave. Lungs: Decreased breath sounds, faint bibasilar rales. Abdomen: Normal bowel sounds. Soft. Nontender. No masses or organomegaly. No abdominal bruits. Extremities: No edema. No clubbing or cyanosis. Pulses: radial=2/4, posterior tibial=2/4. Neuro: No focal deficits. DATA: EKG on admission: Atrial fibrillation Rightward axis Abnormal ECG When compared with ECG of 21-JAN-2016 06:51, Criteria for Septal infarct are no longer Present T wave inversion no longer evident in Anterior leads Telemetry reviewed: Chronic atrial fibrillation, variable rates. Ranges 80-90 at rest, increasing to 150 bpm with minimal exertion. Chest Xray: 1. Cardiomegaly with volume overload. 2. Peripheral opacities likely chronic lung disease as demonstrated on prior CT from 04/29/2017. No new superimposed infiltrate. 3. Previously noted right lower lobe nodule on CT is not apparent on this radiograph. Follow-up is recommended. Please see previously dictated CT report. Chest CT: IMPRESSION: 1. Allowing for motion artifact degradation, no evidence of central pulmonary embolus. 2. Findings consistent with cardiogenic pulmonary edema with elevated pulmonary arterial and right heart pressures likely a consequence of elevated left heart pressure. 3. Borderline mediastinal lymphadenopathy. 4. 14 mm right adrenal gland benign adenoma. 5. Multiple old right rib fractures in varying stages of healing. ASSESSMENT: 1. Acute on Chronic respiratory failure, multifactorial. Specific etiology uncertain. Pulm vs cardiac etiology. 2. Persistent atrial fibrillation Contraindications to chronic anticoagulation secondary to history of gastrointestinal bleeding and fall risk. 3. Labile HTN - controlled 4. Chronic CAD with prior LAD PCI - no recurrent chest discomfort; most recent nuclear stress performed at [place] in 2016 negative for inducible ischemia 5. 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 - tolerating low-dose aspirin - no signs/symptoms of recurrent bleeding 6. Dyslipidemia goal LDL less than 70mg/dL - tolerating 80 mg atorvastatin 7. Chronic Fatigue -unchanged PLAN: Recommend continuing IV diuretics today. Update 2D echocardiogram to evaluate LV/RV function, valve disease and pulmonary hypertension Lopressor ordered on admission. Takes Toprol 25 mg at home per EPIC list, will change and titrate as allowed for HR. Will follow. Case discussed with Dr. Velazquez (Carol Castaneda PA-C) Cardiology attending: Pt seen and examined, agree with findings and assessment as per Carol Chau. No clear cut cardiac component to dyspnea, however, will update resting echo today and proceed with dobutamine stress echo on 07/09. This will allow us to check PA pressures with stress. No significant symptom improvement with diuresis , would discontinue. (Anuj Velazquez, D.O.)
--- NOTE | 2017-07-08 12:56 | Pulmonology Progress Note ---
Pulmonary Progress Note Date of Service Jul 08, 2017. Attending Dr. Shields Subjective Patient seen and examined this morning. Quite tearful and frustrated about long history of dyspnea. She denies dyspnea rest but complains of worsening dyspnea on exertion. She denies any chest pain, cough. Objective Vital signs reviewed. MAXIMUM TEMPERATURE 36.6, blood pressure 131/72 to 142/91 , pulse 53-109, respiratory rate 16-22, pulse oximetry 92-97% on 2-3 L nasal cannula. Gen.: Awake alert oriented 3, tearful. No signs of acute respiratory distress. CVS: S1-S2, irregularly irregular rate and rhythm Lungs: Good air entry bilaterally, bibasilar lung crackles at bases Abdomen: Obese, nontender, nondistended bowel sounds positive Extremities: No edema bilateral lower extremities, no cyanosis, no clubbing Laboratory data reviewed. White blood cell count 13.98 down to 9.56 today. Troponin 3 negative Previous imaging and studies Nuclear medicine cardiac stress test (performed a [facility]) 10/03/2015 Left ventricle: Normal in size and normal function, LVEF=75% Right ventricle: Normal in size and function Perfusion study: Within normal limits No evidence of scarred myocardium No evidence of inducible ischemia Low risk scan V/Q scan 06/07/2017 Low probability for pulmonary embolism Pulmonary function study 03/05/2017 FEV1/FVC 87 FEV1 1.70/85% FVC 1.95/60% Bronchodilator no significant response TLC 4.98/90% SVC 2.44/87% RV/TLC 51 DLCO 71% DL/VA: 129 Echocardiogram 09/06/2015 Left ventricle: EF>70%: Left ventricular hypertrophy Right ventricle: TAPSE >1.5cm Left atrium: Moderately dilated Assessment & Plan Dyspnea Diastolic dysfunction Possible pulmonary hypertension Nocturnal hypoxemia Chronic fatigue Deconditioning Ms. Denson is an 86-year-old female with chronic dyspnea. She said extensive workup in the past both locally and in [place]. PFT done in 03/05/2017 only significant for mild restrictive ventilatory defect with a FVC of 60%. This was likely thought to be related to her kyphosis. Most recent CT chest done on 07/07/2017show an enlarged pulmonary artery suggestive of possible pulmonary hypertension. This could be some group 2 or group 3 secondary to her underlying cardiac disease. V/Q scan on 06/07/2017 showed a low probability of chronic thromboembolic disease. Cardiology consult placed for possible right heart catheterization. At the current time the plan is to have dobutamine stress testing in a.m. Pending stress testing results recommend OT/and PT therapy for deconditioning. Continue his supplemental oxygen when necessary and at night. Continue with diuretics. I would discontinue prednisone. Continue 5 days of antibiotics. Can continue with Xopenex/ipratropium nebulizers every 6 hours. Consider sending TSH level. Pulmonary nodule seen on previous CTs has been stable over the last [address] chest done on 05/13/2017 shows no avidity. There for refills and no further workup is indicated at this time. Data Medications: Current Inpatient Medications Medications (Trade) Dose Ordered Sig/Pily Route Start Time Stop Time Status Last Admin Dose Admin Ioversol (Optiray 320) 111 ml UD PRN IV 07/07/17 11:30 07/11/17 11:29 Heparin Sodium (Porcine) (Heparin Sq 5000 Unit/0.5ml) 5,000 unit Q8 SQ 07/07/17 22:00 08/06/17 21:59 07/08/17 06:25 5,000 UNIT Acetaminophen (Tylenol Tab) 650 mg Q4H PRN PO 07/07/17 13:15 08/06/17 13:14 Al Hydrox/Mg Hydrox/Simethicone (Maalox Max Susp) 15 ml Q4H PRN PO 07/07/17 13:15 08/06/17 13:14 Magnesium Hydroxide (Milk Of Magnesia Susp) 30 ml Q12H PRN PO 07/07/17 13:15 08/06/17 13:14 Ondansetron HCl (Zofran Inj) 4 mg Q6H PRN IV 07/07/17 13:15 08/06/17 13:14 Nitroglycerin (Nitrostat Tab) 0.4 mg UD PRN SL 07/07/17 13:15 08/06/17 13:14 Albuterol (Ventolin Hfa Inhaler) 2 puffs Q6H PRN INH 07/07/17 13:15 08/06/17 13:14 Atorvastatin Calcium (Lipitor Tab) 80 mg QPM PO 07/07/17 21:00 08/06/17 20:59 07/07/17 20:38 80 MG Lisinopril (Zestril Tab) 40 mg QAM PO 07/08/17 09:00 08/07/17 08:59 07/08/17 08:26 40 MG Metoprolol Tartrate (Lopressor Tab) 12.5 mg BID PO 07/07/17 21:00 08/06/17 20:59 07/08/17 08:25 12.5 MG Multivitamins (Multivitamin Tab) 1 tab QAM PO 07/08/17 09:00 08/07/17 08:59 07/08/17 08:27 1 TAB Prednisone (PredniSONE TAB) 40 mg DAILY PO 07/08/17 09:00 08/07/17 08:59 07/08/17 08:27 40 MG Furosemide 40 mg/ Syringe 4 ml @ 4 mls/min BID17 IV 07/08/17 09:00 08/07/17 08:59 07/08/17 08:49 4 MLS/MIN Azithromycin (Zithromax Tab) 250 mg DAILY PO 07/08/17 09:00 07/12/17 08:59 07/08/17 08:27 250 MG Amlodipine Besylate (Norvasc Tab) 5 mg QAM PO 07/08/17 09:00 08/07/17 08:59 07/08/17 08:26 5 MG Aspirin (Ecotrin Tab) 81 mg QAM PO 07/08/17 09:00 08/07/17 08:59 07/08/17 08:26 81 MG Colestipol HCl (Colestid Tab) 1 gm QAM PO 07/08/17 09:00 08/07/17 08:59 07/08/17 08:25 1 GM Sertraline HCl (Zoloft Tab) 50 mg QAM PO 07/08/17 09:00 08/07/17 08:59 07/08/17 08:25 50 MG Tiotropium Rogers (Spiriva Handihaler Inhaler) 1 puff DAILY INH 07/08/17 09:00 08/07/17 08:59 Future Hold Ipratropium Rogers (Atrovent 0.02% 0.5MG/2.5ML Neb) 0.5 mg Q6R INH 07/07/17 15:00 08/06/17 14:59 07/08/17 07:18 0.5 MG Ipratropium Rogers (Atrovent 0.02% 0.5MG/2.5ML Neb) 0.5 mg Q2H PRN INH 07/07/17 14:30 08/06/17 14:29 Levalbuterol (Xopenex 0.63 Mg/ 3 Ml Neb) 0.63 mg Q6R INH 07/07/17 15:00 08/06/17 14:59 07/08/17 07:18 0.63 MG Levalbuterol (Xopenex 1.25MG/ 0.5ML Neb) 1.25 mg Q2H PRN INH 07/07/17 14:45 08/06/17 14:44 Miconazole Nitrate (Desenex Powder) 1 appln PRN PRN EXT 07/08/17 11:15 08/07/17 11:14 Vital Signs: Date Time Temp Pulse Resp B/P (MAP) Pulse Ox O2 Delivery O2 Flow Rate FiO2 07/08/17 11:16 36.6 96 20 132/72 (92) 95 Nasal Cannula 2.0 07/08/17 08:29 101 22 131/72 (91) 97 Nasal Cannula 2.0 07/08/17 08:00 96 Nasal Cannula 2.0 07/08/17 07:22 36.6 65 22 140/90 (107) 97 Nasal Cannula 2.0 07/08/17 07:19 65 16 97 Nasal Cannula 2.0 07/08/17 05:04 36.3 109 22 142/91 (108) 92 Nasal Cannula 2.0 07/08/17 04:00 95 Nasal Cannula 2.0 07/08/17 01:51 53 16 96 Nasal Cannula 3.0 07/08/17 00:00 95 Nasal Cannula 2.0 07/08/17 00:00 95 Nasal Cannula 2.0 07/07/17 23:19 36.6 87 20 126/74 (91) 94 Nasal Cannula 2.0 07/07/17 20:34 81 20 95 Nasal Cannula 3.0 07/07/17 20:00 Nasal Cannula 2.0 07/07/17 19:42 36.7 114 20 155/77 (103) 94 Nasal Cannula 2.0 07/07/17 16:00 Nasal Cannula 2.0 07/07/17 15:05 82 20 95 Nasal Cannula 3.0 07/07/17 14:49 36.8 81 22 134/64 (87) 95 Nasal Cannula 2.0 07/07/17 14:45 36.8 104 22 134/64 95 Nasal Cannula 2.0 07/07/17 13:55 24 07/07/17 13:38 145/99 07/07/17 12:55 103 Laboratory Results: Last 24 Hours Test 07/07/17 21:02 07/08/17 05:05 Total Creatine Kinase 55 U/L 52 U/L Creatine Kinase MB 1.9 ng/ml 2.0 ng/ml Creatine Kinase MB Ratio 3.5 3.8 Troponin I < 0.015 ng/ml < 0.015 ng/ml White Blood Count 9.56 K/uL Red Blood Count 4.63 M/uL Hemoglobin 13.8 g/dL Hematocrit 42.0 % Mean Corpuscular Volume 90.7 fL Mean Corpuscular Hemoglobin 29.8 pg Mean Corpuscular Hemoglobin Concent 32.9 g/dl Platelet Count 179 K/uL Mean Platelet Volume 11.0 fL Neutrophils (%) (Auto) 85.3 % Lymphocytes (%) (Auto) 8.1 % Monocytes (%) (Auto) 5.8 % Eosinophils (%) (Auto) 0.1 % Basophils (%) (Auto) 0.2 % Neutrophils # (Auto) 8.16 K/uL Lymphocytes # (Auto) 0.77 K/uL Monocytes # (Auto) 0.55 K/uL Eosinophils # (Auto) 0.01 K/uL Basophils # (Auto) 0.02 K/uL RDW Standard Deviation 50.0 fL RDW Coefficient of Variation 15.0 % Immature Granulocyte % (Auto) 0.5 % Immature Granulocyte # (Auto) 0.05 K/uL Sodium Level 136 mmol/L Potassium Level 4.1 mmol/L Chloride Level 103 mmol/L Carbon Dioxide Level 30 mmol/L Anion Gap 3.0 mmol/L Blood Urea Nitrogen 23 mg/dl Creatinine 0.77 mg/dl Est Creatinine Clear Calc Drug Dose 62.9 ml/min Estimated GFR () 79.9 Estimated GFR (Non- 68.9 BUN/Creatinine Ratio 30.6 Random Glucose 146 mg/dl Calcium Level 9.3 mg/dl Magnesium Level 2.1 mg/dl
--- NOTE | 2017-07-08 16:00 | ECHOCARDIOGRAM REPORT ---
*NOTICE TO RECEIVING REPUBLICAN AGENCY This information is strictly Confidential and protected under [place] law. [place] law prohibits you from making any further disclosure of this information unless further disclosure is expressly permitted by the written consent of the person to whom it pertains or is authorized by law. A general authorization for the release of medical or other information is not sufficient for this purpose. Hospital accepts no responsibility if the information is made available to any other person, INCLUDING THE PATIENT. Interpretation Summary * Name: MENA EUBANKS Study Date: 07/08/2017 01:32 PM BP: 131/72 mmHg * Patient Location: [facility]\S\N285\S\2 HR: 101 * : 1930 (M/d/yyyy) Gender: Female Height: 67 in * Age: 86 yrs Ethnicity: CA Weight: 225 lb * Ordering Physician: Carol Castaneda * Referring Physician: Self, Referred * Performed By: Rosenda Thomson RDCS * * Reason For Study: Congestive Heart Failure * BSA: 2.1 m2 * -- Conclusions -- * Compared to previous study of 09/06/15: RV systolic function is now mildly reduced and pericardial effusion is now present. * Normal LV chamber size with moderate concentric LVH. * Normal LV systolic function, EF 65-70%. * No segmental left ventricular wall motion abnormalities are noted. * The right ventricular cavity size is normal (basal dimension <4.2 cm in right ventricular apical 4-chamber view). Mildly reduced RV systolic function. * Aortic valve sclerosis moderate, without significant aortic valvular stenosis. * Moderate left atrial enlargement. * Small, loculated anterior pericardial effusion with stranding to suggest chronicity. No hemodynamic significance. Procedure Details * A complete two-dimensional transthoracic echocardiogram was performed (2D, M-mode, Doppler and color flow Doppler). * The study was technically difficult. * The study was technically difficult, but visualization was adequate with the administration of Definity ultrasound contrast. * A contrast injection of Definity was performed to improve assessment of LV function. * Contrast was injected into an intravenous site in the left arm. * One vial of Definity ultrasound contrast was diluted in normal saline to a total volume of 10 ml. A total of '2' ml of solution was administered during imaging. * Lot # [id number] of Definity utilized for procedure. * Expiration date . * The attending nurse who injected the contrast agent was MAJO Rahman. Left Ventricle * The left ventricle is normal in size. * There is moderate concentric left ventricular hypertrophy. * Ejection Fraction = 65-70%. * Left ventricular systolic function is normal. * No segmental left ventricular wall motion abnormalities are noted. * The left ventricular wall motion is normal. Right Ventricle * The right ventricular cavity size is normal (basal dimension <4.2 cm in right ventricular apical 4-chamber view). * The right ventricular systolic function is mildly reduced. Atria * The left atrium is moderately dilated. * Right atrial size is normal. * No ASD detected; PFO is not assessed. Mitral Valve * There is mild mitral annular calcification. * There is no mitral valve stenosis. * There is no mitral regurgitation noted. Tricuspid Valve * The tricuspid valve is normal in structure and function. Aortic Valve * The aortic valve is trileaflet. * Aortic valve sclerosis moderate, without significant aortic valvular stenosis. * There is no significant aortic regurgitation. Pulmonic Valve * The pulmonary valve is not well seen, but the Doppler examination is normal without significant regurgitation or stenosis. Great Vessels * The aortic root is normal size. Pericardium/Pleural * Small, loculated anterior pericardial effusion with stranding to suggest chronicity. No hemodynamic significance. MMode 2D Measurements and Calculations IVSd 1.4 cm IVSs 1.5 cm LVIDd 3.9 cm LVIDs 2.1 cm LVPWd 1.4 cm LVPWs 1.8 cm IVS/LVPW 0.98 FS 46.3 % EDV(Teich) 64.9 ml ESV(Teich) 14.1 ml EF(Teich) 78.3 % EDV(cubed) 58.2 ml ESV(cubed) 9.0 ml EF(cubed) 84.5 % % IVS thick 8.0 % % LVPW thick 32.5 % LV mass(C)d 192.0 grams LV mass(C)dI 90.3 grams/m\S\2 LV mass(C)s 121.9 grams LV mass(C)sI 57.3 grams/m\S\2 SV(Teich) 50.8 ml SI(Teich) 23.9 ml/m\S\2 SV(cubed) 49.1 ml SI(cubed) 23.1 ml/m\S\2 Ao root diam 3.3 cm Ao root area 8.6 cm\S\2 ACS 1.5 cm LA dimension 5.3 cm LA/Ao 1.6 LVAd ap4 28.8 cm\S\2 LVLd ap4 8.2 cm EDV(MOD-sp4) 85.5 ml EDV(sp4-el) 85.5 ml LVAs ap4 15.1 cm\S\2 LVLs ap4 6.9 cm ESV(MOD-sp4) 29.5 ml ESV(sp4-el) 28.1 ml EF(MOD-sp4) 65.4 % EF(sp4-el) 67.1 % LVAd ap2 26.8 cm\S\2 LVLd ap2 8.5 cm EDV(MOD-sp2) 72.9 ml EDV(sp2-el) 71.1 ml LVAs ap2 13.1 cm\S\2 LVLs ap2 6.4 cm ESV(MOD-sp2) 23.4 ml ESV(sp2-el) 22.9 ml EF(MOD-sp2) 67.9 % EF(sp2-el) 67.8 % LVLd %diff 3.6 % EDV(MOD-bp) 79.3 ml LVLs %diff -7.82 % ESV(MOD-bp) 27.1 ml EF(MOD-bp) 65.8 % SV(MOD-sp4) 56.0 ml SI(MOD-sp4) 26.3 ml/m\S\2 SV(MOD-sp2) 49.6 ml SI(MOD-sp2) 23.3 ml/m\S\2 SV(MOD-bp) 52.1 ml SI(MOD-bp) 24.5 ml/m\S\2 SV(sp4-el) 57.3 ml SI(sp4-el) 27.0 ml/m\S\2 SV(sp2-el) 48.2 ml SI(sp2-el) 22.7 ml/m\S\2 Doppler Measurements and Calculations MV E max erika 129.2 cm/sec MV dec time 0.24 sec Ao V2 max 142.7 cm/sec Ao max PG 8.3 mmHg Ao max PG (full) 2.7 mmHg LV V1 max PG 5.5 mmHg LV V1 max 117.0 cm/sec PA V2 max 132.9 cm/sec PA max PG 7.1 mmHg PI max erika 202.8 cm/sec PI max PG 16.4 mmHg PI dec slope 117.7 cm/sec\S\2 PI P1/2t 504.8 msec TR max erika 311.1 cm/sec
--- NOTE | 2017-07-08 18:38 | Progress Note ---
Internal Med Progress Note Date of Service: Jul 08, 2017. Provider Documentation: SUBJECTIVE: Patient seen and examined at bedside. Patient breathing on nasal cannula. Reports dyspnea has been chronic problem. Denies chest pain. OBJECTIVE: Exam: Gen: no acute distress Heart: S1-S2, irregularly irregular rate and rhythm Lungs: On nasal cannula, good air entry bilaterally, bibasilar lung crackles at bases Abdomen: Obese, nontender, nondistended bowel sounds positive Extremities: No edema bilateral lower extremities, no cyanosis, no clubbing Neuro: awake, alert, no focal deficits ASSESSMENT & PLAN: DSYPNEA Cardiac Echo on 07/08/17 * Compared to previous study of 09/06/15: RV systolic function is now mildly reduced and pericardial effusion is now present. * Normal LV chamber size with moderate concentric LVH. * Normal LV systolic function, EF 65-70%. * No segmental left ventricular wall motion abnormalities are noted. * The right ventricular cavity size is normal (basal dimension <4.2 cm in right ventricular apical 4-chamber view). Mildly reduced RV systolic function. * Aortic valve sclerosis moderate, without significant aortic valvular stenosis. * Moderate left atrial enlargement. * Small, loculated anterior pericardial effusion with stranding to suggest chronicity. No hemodynamic significance. Cardiology: proceed with dobutamine stress echo on 07/09/17 to check Pulmonary Artery pressures with stress. Cardiology service recommends holding diuretic medication Pulmonary service is following patient and has recommended cardiac cath to assess pulmonary hypertension Pulmonary service recommends to stop prednisone which patient received on admission. Continue supplemental oxygen when necessary and at night. Continue 5 days of antibiotics (on Azithomycin). Can continue with Xopenex/ipratropium nebulizers every 6 hours. Sending TSH level. Coronary artery disease status post stent. Currently, denies any chest pain. Continue home medications of beta nidia, aspirin and statin. History of hypertension. Continue amlodipine, Lopressor and lisinopril. Holding diuretics History of hyperlipidemia. Continue statin. History of chronic atrial fibrillation, controlled on Lopressor . Not on anticoagulation because of history of gastrointestinal bleeding. DVT ppx heparin subcutaneous Level 1 full code. PT and OT prior to discharge. Vital Signs: Date Time Temp Pulse Resp B/P (MAP) Pulse Ox O2 Delivery O2 Flow Rate FiO2 07/08/17 15:29 36.3 100 22 148/78 (101) 95 Nasal Cannula 2.0 07/08/17 12:00 Nasal Cannula 2.0 07/08/17 11:16 36.6 96 20 132/72 (92) 95 Nasal Cannula 2.0 07/08/17 08:29 101 22 131/72 (91) 97 Nasal Cannula 2.0 07/08/17 08:00 96 Nasal Cannula 2.0 07/08/17 07:22 36.6 65 22 140/90 (107) 97 Nasal Cannula 2.0 07/08/17 07:19 65 16 97 Nasal Cannula 2.0 07/08/17 05:04 36.3 109 22 142/91 (108) 92 Nasal Cannula 2.0 07/08/17 04:00 95 Nasal Cannula 2.0 07/08/17 01:51 53 16 96 Nasal Cannula 3.0 07/08/17 00:00 95 Nasal Cannula 2.0 07/08/17 00:00 95 Nasal Cannula 2.0 07/07/17 23:19 36.6 87 20 126/74 (91) 94 Nasal Cannula 2.0 07/07/17 20:34 81 20 95 Nasal Cannula 3.0 07/07/17 20:00 Nasal Cannula 2.0 07/07/17 19:42 36.7 114 20 155/77 (103) 94 Nasal Cannula 2.0 Lab Results: Results Past 24 Hours Test 07/07/17 21:02 07/08/17 05:05 Range/Units Total Creatine Kinase 55 52 26-192 U/L Creatine Kinase MB 1.9 2.0 0.5-3.6 ng/ml Creatine Kinase MB Ratio 3.5 3.8 0-3.0 Troponin I < 0.015 < 0.015 0-0.045 ng/ml White Blood Count 9.56 4.8-10.8 K/uL Red Blood Count 4.63 4.2-5.4 M/uL Hemoglobin 13.8 12.0-16.0 g/dL Hematocrit 42.0 37-47 % Mean Corpuscular Volume 90.7 80-100 fL Mean Corpuscular Hemoglobin 29.8 25-34 pg Mean Corpuscular Hemoglobin Concent 32.9 32-36 g/dl Platelet Count 179 130-400 K/uL Mean Platelet Volume 11.0 7.4-10.4 fL Neutrophils (%) (Auto) 85.3 % Lymphocytes (%) (Auto) 8.1 % Monocytes (%) (Auto) 5.8 % Eosinophils (%) (Auto) 0.1 % Basophils (%) (Auto) 0.2 % Neutrophils # (Auto) 8.16 1.4-6.5 K/uL Lymphocytes # (Auto) 0.77 1.2-3.4 K/uL Monocytes # (Auto) 0.55 0.11-0.59 K/uL Eosinophils # (Auto) 0.01 0-0.5 K/uL Basophils # (Auto) 0.02 0-0.2 K/uL RDW Standard Deviation 50.0 36.4-46.3 fL RDW Coefficient of Variation 15.0 11.5-14.5 % Immature Granulocyte % (Auto) 0.5 % Immature Granulocyte # (Auto) 0.05 0.00-0.02 K/uL Sodium Level 136 136-145 mmol/L Potassium Level 4.1 3.5-5.1 mmol/L Chloride Level 103 98-107 mmol/L Carbon Dioxide Level 30 21-32 mmol/L Anion Gap 3.0 3-11 mmol/L Blood Urea Nitrogen 23 7-18 mg/dl Creatinine 0.77 0.60-1.20 mg/dl Est Creatinine Clear Calc Drug Dose 62.9 ml/min Estimated GFR () 79.9 Estimated GFR (Non- 68.9 BUN/Creatinine Ratio 30.6 10-20 Random Glucose 146 70-99 mg/dl Calcium Level 9.3 8.5-10.1 mg/dl Magnesium Level 2.1 1.8-2.4 mg/dl
[2017-07-08] MEDS: ATORVASTATIN 40 MG TAB PO SCH (21:04)
[2017-07-09] VITALS (8 sets, daily range): BP systolic 92–119; BP diastolic 54–64; PULSE 77–98; TEMP 36.4–36.7; O2SAT 92–97
[2017-07-09] MEDS: IPRATROPIUM BROMIDE NEB SOLN 0.02% 2.5 ML VIAL INH SCH ×3 (01:30→14:08)
[2017-07-09] MEDS: LEVALBUTEROL 0.63MG/3 ML NEB INH SCH ×3 (01:30→14:08)
[2017-07-09] MEDS: HEPARIN SOD 5000 UNIT/0.5 ML CARP SQ SCH ×2 (05:41→14:00)
[2017-07-09 05:47] LABS: BASO % 0.2 %; BASO ABS # 0.02 K/uL (0-0.2); COMPLETE YES; EOS % 2.3 %; HEMATOCRIT 42.1 % (37-47); IG% 0.3 %; LYMPH % 18.7 %; LYMPH ABS # 1.99 K/uL (1.2-3.4); MEAN CELL VOLUME 90.3 fL (80-100); MEAN CORPUSCULAR HEMOGLOBIN 29.8 pg (25-34); MEAN PLATELET VOLUME 10.9 fL (7.4-10.4); MONO % 8.3 %; NEUT % 70.2 %; PLATELET COUNT 175 K/uL (130-400); RED BLOOD COUNT 4.66 M/uL (4.2-5.4); WHITE BLOOD COUNT 10.62 K/uL (4.8-10.8)
[2017-07-09 06:12] LABS: BUN/CREATININE RATIO 42.3 (10-20); CREATININE 0.92 mg/dl (0.60-1.20); MAGNESIUM 2.3 mg/dl (1.8-2.4); POTASSIUM 3.6 mmol/L (3.5-5.1)
[2017-07-09 06:23] LABS: THYROID STIMULATING HORMONE 0.386 uIu/ml (0.300-4.500)
[2017-07-09] MEDS: COLESTIPOL HCL 1 GM TAB PO SCH (08:22)
[2017-07-09] MEDS: FUROSEMIDE INJ 40 MG in SYRINGE 0 ML IV SCH ×2 (08:23→17:50)
[2017-07-09] MEDS: ASPIRIN 81 MG ECTAB PO SCH (08:24)
[2017-07-09] MEDS: LISINOPRIL 40 MG TAB PO SCH (08:24)
[2017-07-09] MEDS: AMLODIPINE BESYLATE 5 MG TAB PO SCH (08:24)
[2017-07-09] MEDS: AZITHROMYCIN 250 MG TAB PO SCH (08:24)
[2017-07-09] MEDS: MULTIVITAMIN TAB PO SCH (08:25)
[2017-07-09] MEDS: SERTRALINE HCL 50 MG TAB PO SCH (08:25)
[2017-07-09] MEDS ORDERED: METOPROLOL SUCC 25MG EXT REL TAB PO SCH (09:00)
--- NOTE | 2017-07-09 10:14 | Cardiology Follow-Up ---
Subjective General Date of Service: Jul 09, 2017. Chief Complaint: SOB Pt evaluation today including: conversation w/ patient, physical exam, chart review, lab review, review of studies, review of inpatient medication list History of Present Illness Patient anxious for discharge. States she continues to note significant dyspnea with minimal exertion, unchanged from admission. She is more comfortable at rest. Cough improving. Still appears to have conversational dyspnea. No chest pain. No dizziness, syncope or near syncope. No orthopnea, PND or edema. Allergies Coded Allergies: Acetaminophen (Verified Allergy, Intermediate, Hives., 07/07/17) Diphenhydramine (Verified Allergy, Unknown, unknown, 07/07/17) Fexofenadine (Verified Allergy, Unknown, UNKNOWN, 07/07/17) NSAIDs (Verified Adverse Reaction, Intermediate, ASA = BLEEDING, 07/07/17) Ezetimibe (Verified Adverse Reaction, Unknown, Nervous and jittery., 07/07) Simvastatin (Verified Adverse Reaction, Unknown, Jittery and anxious., ) Social History Smoking Status: Never Smoker Hx Tobacco Use In Past Year?: No Hx Alcohol Use - Type And Amou: Yes (wine occasionally) Hx Substance Use - Type And Am: No Problem List Medical Problems: (1) Acute congestive heart failure Status: Acute (2) Allergic reaction Status: Acute (3) Atrial fibrillation Status: Acute (4) Atrial fibrillation with RVR Status: Acute (5) Bronchospasm Status: Acute (6) CHF (congestive heart failure) Status: Acute (7) Hypertensive urgency Status: Acute (8) Hypoxia Status: Acute (9) Interstitial lung disease Status: Acute (10) New onset atrial fibrillation Status: Acute (11) New onset atrial fibrillation Status: Acute (12) Respiratory failure Status: Acute (13) Vertigo Status: Acute Review of Systems Respiratory: + cough, + shortness of breath, + dyspnea on exertion, No sputum, No wheezing, No dyspnea at rest Cardiac: No chest pain, No orthopnea, No PND, No edema, No palpitations Physical Exam Vital Signs Last Vital Signs Documentation Date Time Temp Pulse Resp B/P (MAP) Pulse Ox O2 Delivery O2 Flow Rate FiO2 07/09/17 07:40 77 18 96 Nasal Cannula 2.0 07/09/17 07:26 36.6 119/62 (81) Physical Exam Constitutional: General Apperance: obese Level of Distress: NAD, chronically ill Psychiatric: Mental Status: active & alert Orientation: to time, to place, to person Head: normocephalic Eyes: Pupils: PERRLA Neck: supple Lungs: Auscultation: deminished air movement, dry rales/crackles Cardiovascular: Heart Auscultation: no murmurs, no rubs, no gallops, irregular rate rhythm Peripheral Pulses: Bruits: none appreciated Dorsalis Pedis Pulse: normal on the left, normal on the right Abdomen: Bowel Sounds: normal Inspection & Palpation: soft, non-distended Extremities: no edema Assessment and Plan Assessment and Plan ASSESSMENT: 1. Acute on Chronic hypoxic respiratory failure 2. Persistent atrial fibrillation, Contraindications to chronic anticoagulation secondary to history of gastrointestinal bleeding and fall risk. 3. Labile HTN - controlled 4. Chronic CAD with prior LAD PCI - no recurrent chest discomfort; most recent nuclear stress performed at [facility] in 2016 negative for inducible ischemia 5. 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 - tolerating low-dose aspirin - no signs/symptoms of recurrent bleeding 6. Dyslipidemia goal LDL less than 70mg/dL - tolerating 80 mg atorvastatin 7. Chronic Fatigue -unchanged PLAN: Echo demonstrates preserved LV function with mildly reduced RV function. No wall motion abnormalities. Small, loculated anterior pericardial effusion with stranding to suggest chronicity. No hemodynamic significance. Recommend proceeding with dobutamine stress echo this AM to r/o ischemic contributing to dyspnea. Will also be able to evaluate pulm pressures with stress. BUN trending higher, suggesting volume depletion. Hold PM dose of furosemide. No significant improvement with aggressive diuresis. Continue Toprol and other cardiac medications. Further recommendations pending review of dobutamine stress echo. Case discussed with Dr. Velazquez Cardiology attending: Pt seen and examined, agree with findings and assessment as per Carol Chau. Stress test was nonischemic.No significant elevation of pulmonary pressures with stress. Pt states that she's feeling well and anxious for discharge. Right sided cardiac cath can be arranged as outpatient should it be deemed necessary. Laboratory Results Last 24 Hours Test 07/09/17 05:32 White Blood Count 10.62 K/uL Red Blood Count 4.66 M/uL Hemoglobin 13.9 g/dL Hematocrit 42.1 % Mean Corpuscular Volume 90.3 fL Mean Corpuscular Hemoglobin 29.8 pg Mean Corpuscular Hemoglobin Concent 33.0 g/dl Platelet Count 175 K/uL Mean Platelet Volume 10.9 fL Neutrophils (%) (Auto) 70.2 % Lymphocytes (%) (Auto) 18.7 % Monocytes (%) (Auto) 8.3 % Eosinophils (%) (Auto) 2.3 % Basophils (%) (Auto) 0.2 % Neutrophils # (Auto) 7.46 K/uL Lymphocytes # (Auto) 1.99 K/uL Monocytes # (Auto) 0.88 K/uL Eosinophils # (Auto) 0.24 K/uL Basophils # (Auto) 0.02 K/uL RDW Standard Deviation 49.0 fL RDW Coefficient of Variation 14.8 % Immature Granulocyte % (Auto) 0.3 % Immature Granulocyte # (Auto) 0.03 K/uL Sodium Level 139 mmol/L Potassium Level 3.6 mmol/L Chloride Level 105 mmol/L Carbon Dioxide Level 29 mmol/L Anion Gap 5.0 mmol/L Blood Urea Nitrogen 39 mg/dl Creatinine 0.92 mg/dl Est Creatinine Clear Calc Drug Dose 52.0 ml/min Estimated GFR () 64.4 Estimated GFR (Non- 55.6 BUN/Creatinine Ratio 42.3 Random Glucose 112 mg/dl Calcium Level 9.0 mg/dl Magnesium Level 2.3 mg/dl Thyroid Stimulating Hormone (TSH) 0.386 uIu/ml
[2017-07-09] MEDS ORDERED: ATROPINE SULFATE 0.1 MG/ML 5ML SYR ONE (10:34)
[2017-07-09] MEDS ORDERED: METOPROLOL TARTRATE 1 MG/ML VIAL ONE (10:34)
[2017-07-09] MEDS ORDERED: DOBUTamine HCL 12.5 MG/ML 20 ML VIAL ONE (10:34)
[2017-07-09] MEDS ORDERED: PERFLUTREN LIPID MICROSPHERE (DEFINITY) IV ONE (11:11)
--- NOTE | 2017-07-09 11:25 | DOBUTAMINE ECHO ---
*NOTICE TO RECEIVING DEMOCRAT AGENCY This information is strictly Confidential and protected under [place] law. [place] law prohibits you from making any further disclosure of this information unless further disclosure is expressly permitted by the written consent of the person to whom it pertains or is authorized by law. A general authorization for the release of medical or other information is not sufficient for this purpose. Hospital accepts no responsibility if the information is made available to any other person, INCLUDING THE PATIENT. Interpretation Summary * Name: MENA EUBANKS Study Date: 07/09/2017 09:51 AM BP: 118/70 mmHg * Patient Location: [facility]\S\N285\S\2 HR: 82 * : 1930 (M/d/yy) Gender: Female Height: 67 in * Age: 86 yrs Ethnicity: [place] Weight: 227 lb * Ordering Physician: Carol Castaneda * Referring Physician: Self, Referred * Performed By: Alejandro Zhu RCS * * Reason For Study: CAD, Dyspnea * BSA: 2.1 m2 * -- Conclusions -- * Nonischemic dobutamine stress echocardiogram. * No arrhythmias. * Normal HR and BP response to dobutamine infusion. * No symptoms with stress. * Peark PASP with dobutamine infusion unchanged from rest. Procedure Details * DOBUTAMINE ECHO, CPT#69548 * A contrast injection of Definity was performed to improve assessment of LV function. * Contrast was injected into an intravenous site in the left arm. * One vial of Definity ultrasound contrast was diluted in normal saline to a total volume of 10 ml. A total of '3' ml of solution was administered during imaging. * Lot # [id number] of Definity utilized for procedure. * Expiration date . * The attending nurse who injected the contrast agent was Irlanda Peña RN. Stress Parameters * Normal baseline electrocardiogram. * No arrhythmia were noted with stress. * The stress portion of this study was personally supervised by the undersigned interpreting physician. * Rest heart rate was '82' BPM. * Rest blood pressure was '118/70' * Maximum heart rate achieved was 137 bpm. * Maximum heart rate was 103 % of maximum age-predicted heart rate. * Maximum blood pressure was '133/48' * Maximum Dobutamine infusion rate was '30' mcg/kg/min. * Dobutamine infusion was terminated due to achieving target heart rate * A total of 2.5 mg of IV Metoprolol was administered to reverse Dobutamine-induced tachycardia. * The patient did not exhibit any symptoms during drug infusion. * Normal blood pressure response to exercise.
--- NOTE | 2017-07-09 11:47 | Pulmonology Progress Note ---
Pulmonary Progress Note Date of Service Jul 09, 2017. Attending Dr. Shields Subjective Patient continues to have SOB especially with exertion, using the restroom, and bending over. She did have a dobutamine stress test this morning. Results are pending. She does not feel like her breathing has improved much at all. Her chart was reviewed in detail. Labs reviewed: WBC 10.62 Creatinine 0.92 BUN 39 Electrolytes stable TSH 0.386 CTA images viewed. CXR viewed. Objective VS reviewed: Afebrile HR 77 RR 18 SaO2 94-97% on 2 L via nasal cannula General: Patient is awake, alert, cooperative. Notable tachypnea during exam. Severe kyphosis. Obese Head: Normocephalic, Atraumatic. ENT: PERRLA, No discharge, EOMI, Sclera normal Neck: Normal ROM. Trachea midline. No stridor Respiratory: Slightly coarse breath sounds at B/L bases. Nasal cannula O2 in place. Cardiovascular: Regular rate and rhythm. Back: Kyphosis Extremities: No cyanosis. Normal ROM Neuro: Alert, Oriented x 3. CN II-XII grossly intact. Sensation and motor function grossly intact. Psych: Mood and affect are normal. Assessment & Plan Dyspnea Diastolic dysfunction-? Possible pulmonary hypertension Nocturnal hypoxemia Chronic fatigue Deconditioning Patient with chronic dyspnea that has been previously worked up at multiple facilities in the past including [facility]. She does have mild restrictive ventilatory disease, likely secondary to kyphosis. Recent CT scan showed pulmonary artery enlargement suggestive of possible pulmonary HTN. Question group 2 or 3 Pulmonary HTN. Cardiology following this patient as well. Dobutamine stress completed this morning and pending results. Consider right heart catheterization to further evaluate pulmonary HTN. Recommend PT/OT for deconditioning. Continue supplemental O2 especially at night. Continue diuretics as renally tolerated. Complete 5 days of antibiotic therapy. Continue Xopenex/Ipratropium nebs Q6h. Also note stable lower lobe pulmonary nodule over 3 years- no need for future follow up scans for this or further workup due to stability. Data Medications: Current Inpatient Medications Medications (Trade) Dose Ordered Sig/Pily Route Start Time Stop Time Status Last Admin Dose Admin Ioversol (Optiray 320) 111 ml UD PRN IV 07/07/17 11:30 07/11/17 11:29 Heparin Sodium (Porcine) (Heparin Sq 5000 Unit/0.5ml) 5,000 unit Q8 SQ 07/07/17 22:00 08/06/17 21:59 07/09/17 05:41 5,000 UNIT Acetaminophen (Tylenol Tab) 650 mg Q4H PRN PO 07/07/17 13:15 08/06/17 13:14 Al Hydrox/Mg Hydrox/Simethicone (Maalox Max Susp) 15 ml Q4H PRN PO 07/07/17 13:15 08/06/17 13:14 Magnesium Hydroxide (Milk Of Magnesia Susp) 30 ml Q12H PRN PO 07/07/17 13:15 08/06/17 13:14 Ondansetron HCl (Zofran Inj) 4 mg Q6H PRN IV 07/07/17 13:15 08/06/17 13:14 Nitroglycerin (Nitrostat Tab) 0.4 mg UD PRN SL 07/07/17 13:15 08/06/17 13:14 Albuterol (Ventolin Hfa Inhaler) 2 puffs Q6H PRN INH 07/07/17 13:15 08/06/17 13:14 Atorvastatin Calcium (Lipitor Tab) 80 mg QPM PO 07/07/17 21:00 08/06/17 20:59 07/08/17 21:04 80 MG Lisinopril (Zestril Tab) 40 mg QAM PO 07/08/17 09:00 08/07/17 08:59 07/09/17 08:24 40 MG Multivitamins (Multivitamin Tab) 1 tab QAM PO 07/08/17 09:00 08/07/17 08:59 07/09/17 08:25 1 TAB Furosemide 40 mg/ Syringe 4 ml @ 4 mls/min BID17 IV 07/08/17 09:00 08/07/17 08:59 07/09/17 08:23 4 MLS/MIN Azithromycin (Zithromax Tab) 250 mg DAILY PO 07/08/17 09:00 07/12/17 08:59 07/09/17 08:24 250 MG Amlodipine Besylate (Norvasc Tab) 5 mg QAM PO 07/08/17 09:00 08/07/17 08:59 07/09/17 08:24 5 MG Aspirin (Ecotrin Tab) 81 mg QAM PO 07/08/17 09:00 08/07/17 08:59 07/09/17 08:24 81 MG Colestipol HCl (Colestid Tab) 1 gm QAM PO 07/08/17 09:00 08/07/17 08:59 07/09/17 08:22 1 GM Sertraline HCl (Zoloft Tab) 50 mg QAM PO 07/08/17 09:00 08/07/17 08:59 07/09/17 08:25 50 MG Tiotropium [place] (Spiriva Handihaler Inhaler) 1 puff DAILY INH 07/08/17 09:00 08/07/17 08:59 Future Hold Ipratropium [place] (Atrovent 0.02% 0.5MG/2.5ML Neb) 0.5 mg Q6R INH 07/07/17 15:00 08/06/17 14:59 07/09/17 07:39 0.5 MG Ipratropium [place] (Atrovent 0.02% 0.5MG/2.5ML Neb) 0.5 mg Q2H PRN INH 07/07/17 14:30 08/06/17 14:29 Levalbuterol (Xopenex 0.63 Mg/ 3 Ml Neb) 0.63 mg Q6R INH 07/07/17 15:00 08/06/17 14:59 07/09/17 07:39 0.63 MG Levalbuterol (Xopenex 1.25MG/ 0.5ML Neb) 1.25 mg Q2H PRN INH 07/07/17 14:45 08/06/17 14:44 Miconazole Nitrate (Desenex Powder) 1 appln PRN PRN EXT 07/08/17 11:15 08/07/17 11:14 07/08/17 18:26 1 APPLN Metoprolol Succinate (Toprol Xl Tab) 25 mg QAM PO 07/09/17 09:00 08/08/17 08:59 07/09/17 08:23 25 MG Vital Signs: Date Time Temp Pulse Resp B/P (MAP) Pulse Ox O2 Delivery O2 Flow Rate FiO2 07/09/17 08:00 Nasal Cannula 2.0 07/09/17 07:40 77 18 96 Nasal Cannula 2.0 07/09/17 07:26 36.6 98 20 119/62 (81) 97 07/09/17 04:00 36.7 80 20 103/64 (77) 94 Nasal Cannula 2.0 07/09/17 04:00 95 Nasal Cannula 2.0 07/09/17 01:30 77 18 94 Nasal Cannula 2.0 07/09/17 00:00 95 Nasal Cannula 2.0 07/09/17 00:00 95 Nasal Cannula 2.0 07/08/17 23:28 36.3 90 20 138/87 (104) 96 Nasal Cannula 2.0 07/08/17 20:21 90 20 98 Nasal Cannula 2.0 07/08/17 20:00 Nasal Cannula 2.0 07/08/17 19:56 36.5 97 18 100/70 (80) 95 Nasal Cannula 2.0 07/08/17 16:00 Nasal Cannula 2.0 07/08/17 15:29 36.3 100 22 148/78 (101) 95 Nasal Cannula 2.0 07/08/17 12:00 Nasal Cannula 2.0 Laboratory Results: Last 24 Hours Test 07/09/17 05:32 White Blood Count 10.62 K/uL Red Blood Count 4.66 M/uL Hemoglobin 13.9 g/dL Hematocrit 42.1 % Mean Corpuscular Volume 90.3 fL Mean Corpuscular Hemoglobin 29.8 pg Mean Corpuscular Hemoglobin Concent 33.0 g/dl Platelet Count 175 K/uL Mean Platelet Volume 10.9 fL Neutrophils (%) (Auto) 70.2 % Lymphocytes (%) (Auto) 18.7 % Monocytes (%) (Auto) 8.3 % Eosinophils (%) (Auto) 2.3 % Basophils (%) (Auto) 0.2 % Neutrophils # (Auto) 7.46 K/uL Lymphocytes # (Auto) 1.99 K/uL Monocytes # (Auto) 0.88 K/uL Eosinophils # (Auto) 0.24 K/uL Basophils # (Auto) 0.02 K/uL RDW Standard Deviation 49.0 fL RDW Coefficient of Variation 14.8 % Immature Granulocyte % (Auto) 0.3 % Immature Granulocyte # (Auto) 0.03 K/uL Sodium Level 139 mmol/L Potassium Level 3.6 mmol/L Chloride Level 105 mmol/L Carbon Dioxide Level 29 mmol/L Anion Gap 5.0 mmol/L Blood Urea Nitrogen 39 mg/dl Creatinine 0.92 mg/dl Est Creatinine Clear Calc Drug Dose 52.0 ml/min Estimated GFR () 64.4 Estimated GFR (Non- 55.6 BUN/Creatinine Ratio 42.3 Random Glucose 112 mg/dl Calcium Level 9.0 mg/dl Magnesium Level 2.3 mg/dl Thyroid Stimulating Hormone (TSH) 0.386 uIu/ml
--- NOTE | 2017-07-09 14:08 | Progress Note ---
Medicine Progress Note Date & Time of Visit: Jul 09, 2017 at 13:39. Subjective Pt was seen and examined Sitting in bed with no distress She is very anxious to go home today As per nurse Pt said that she would sign AMA if I don't send her home Pt said that she is still having SOB with exertion Pt said that she has been having SOB for about 3 yrs She said that she saw many provider and had many cardiac cath Pt said that she would not get anymore cardiac cath done and don't even mention that to her she said that she does have oxygen supplement and only use it with exertion She said that she does not use it when she goes do grocery or outside because she takes her time to ambulate Denies any chest pain, palpitation and dizziness. Objective Last 8 Hrs Date Time Temp Pulse Resp B/P (MAP) Pulse Ox O2 Delivery O2 Flow Rate FiO2 07/09/17 12:00 Nasal Cannula 2.0 07/09/17 08:00 Nasal Cannula 2.0 07/09/17 07:40 77 18 96 Nasal Cannula 2.0 07/09/17 07:26 36.6 98 20 119/62 (81) 97 Physical Exam: General- No acute distress Head- atraumatic Eyes- PERRL, EOMI ENT- oropharynx clear Neck- supple, no JVD Lungs- clear to auscultation Heart- regular rhythm; no murmur Abdomen- normal bowel sounds, soft Extremities- no calf tenderness Neuro- alert, oriented x 3; PERRL, EOMI; no facial palsy Skin- warm & dry Laboratory Results: Last 24 Hours Test 07/09/17 05:32 White Blood Count 10.62 K/uL Red Blood Count 4.66 M/uL Hemoglobin 13.9 g/dL Hematocrit 42.1 % Mean Corpuscular Volume 90.3 fL Mean Corpuscular Hemoglobin 29.8 pg Mean Corpuscular Hemoglobin Concent 33.0 g/dl Platelet Count 175 K/uL Mean Platelet Volume 10.9 fL Neutrophils (%) (Auto) 70.2 % Lymphocytes (%) (Auto) 18.7 % Monocytes (%) (Auto) 8.3 % Eosinophils (%) (Auto) 2.3 % Basophils (%) (Auto) 0.2 % Neutrophils # (Auto) 7.46 K/uL Lymphocytes # (Auto) 1.99 K/uL Monocytes # (Auto) 0.88 K/uL Eosinophils # (Auto) 0.24 K/uL Basophils # (Auto) 0.02 K/uL RDW Standard Deviation 49.0 fL RDW Coefficient of Variation 14.8 % Immature Granulocyte % (Auto) 0.3 % Immature Granulocyte # (Auto) 0.03 K/uL Sodium Level 139 mmol/L Potassium Level 3.6 mmol/L Chloride Level 105 mmol/L Carbon Dioxide Level 29 mmol/L Anion Gap 5.0 mmol/L Blood Urea Nitrogen 39 mg/dl Creatinine 0.92 mg/dl Est Creatinine Clear Calc Drug Dose 52.0 ml/min Estimated GFR () 64.4 Estimated GFR (Non- 55.6 BUN/Creatinine Ratio 42.3 Random Glucose 112 mg/dl Calcium Level 9.0 mg/dl Magnesium Level 2.3 mg/dl Thyroid Stimulating Hormone (TSH) 0.386 uIu/ml Assessment & Plan DYSPNEA Acute on Chronic SOB, has been going on for years CTA chest showed no evidence of central pulmonary embolus. Pulmonology recommended Right hearth cath Pt refused cardiac cath at this time because she had cath done in the past case discussed with Cardiology recommended to arrange it as an outpatient Continue supplemental O2 Continue Xopenex/Ipratropium nebs Q6h. Continue Zithromax ECHO done on 07/08/17 * Compared to previous study of 09/06/15: RV systolic function is now mildly reduced and pericardial effusion is now present. * Normal LV chamber size with moderate concentric LVH. * Normal LV systolic function, EF 65-70%. * No segmental left ventricular wall motion abnormalities are noted. * The right ventricular cavity size is normal (basal dimension <4.2 cm in right ventricular apical 4-chamber view). Mildly reduced RV systolic function. * Aortic valve sclerosis moderate, without significant aortic valvular stenosis. * Moderate left atrial enlargement. * Small, loculated anterior pericardial effusion with stranding to suggest chronicity. No hemodynamic significance. Dobutamine stress echo on 07/09/17 * Nonischemic dobutamine stress echocardiogram. * No arrhythmias. * Normal HR and BP response to dobutamine infusion. * No symptoms with stress. * Peark PASP with dobutamine infusion unchanged from rest. CAD s/p Stent. Asymptomatic Continue home medications of beta nidia, aspirin and statin. Hypertension. Continue amlodipine, Lopressor and lisinopril Hyperlipidemia. Continue statin. HX atrial fibrillation Rate controlled Continue Lopressor Not on anticoagulatiodue to hx of GI bleeding. DVT ppx heparin sub CODE STATUS FULL CODE Disposition Possible discharge home today Consultants: Pulmonary Cardio Current Inpatient Medications: Current Inpatient Medications Medications (Trade) Dose Ordered Sig/Pily Route Start Time Stop Time Status Last Admin Dose Admin Ioversol (Optiray 320) 111 ml UD PRN IV 07/07/17 11:30 07/11/17 11:29 Heparin Sodium (Porcine) (Heparin Sq 5000 Unit/0.5ml) 5,000 unit Q8 SQ 07/07/17 22:00 08/06/17 21:59 07/09/17 05:41 5,000 UNIT Acetaminophen (Tylenol Tab) 650 mg Q4H PRN PO 07/07/17 13:15 08/06/17 13:14 Al Hydrox/Mg Hydrox/Simethicone (Maalox Max Susp) 15 ml Q4H PRN PO 07/07/17 13:15 08/06/17 13:14 Magnesium Hydroxide (Milk Of Magnesia Susp) 30 ml Q12H PRN PO 07/07/17 13:15 08/06/17 13:14 Ondansetron HCl (Zofran Inj) 4 mg Q6H PRN IV 07/07/17 13:15 08/06/17 13:14 Nitroglycerin (Nitrostat Tab) 0.4 mg UD PRN SL 07/07/17 13:15 08/06/17 13:14 Albuterol (Ventolin Hfa Inhaler) 2 puffs Q6H PRN INH 07/07/17 13:15 08/06/17 13:14 Atorvastatin Calcium (Lipitor Tab) 80 mg QPM PO 07/07/17 21:00 08/06/17 20:59 07/08/17 21:04 80 MG Lisinopril (Zestril Tab) 40 mg QAM PO 07/08/17 09:00 08/07/17 08:59 07/09/17 08:24 40 MG Multivitamins (Multivitamin Tab) 1 tab QAM PO 07/08/17 09:00 08/07/17 08:59 07/09/17 08:25 1 TAB Furosemide 40 mg/ Syringe 4 ml @ 4 mls/min BID17 IV 07/08/17 09:00 08/07/17 08:59 07/09/17 08:23 4 MLS/MIN Azithromycin (Zithromax Tab) 250 mg DAILY PO 07/08/17 09:00 07/12/17 08:59 07/09/17 08:24 250 MG Amlodipine Besylate (Norvasc Tab) 5 mg QAM PO 07/08/17 09:00 08/07/17 08:59 07/09/17 08:24 5 MG Aspirin (Ecotrin Tab) 81 mg QAM PO 07/08/17 09:00 08/07/17 08:59 07/09/17 08:24 81 MG Colestipol HCl (Colestid Tab) 1 gm QAM PO 07/08/17 09:00 08/07/17 08:59 07/09/17 08:22 1 GM Sertraline HCl (Zoloft Tab) 50 mg QAM PO 07/08/17 09:00 08/07/17 08:59 07/09/17 08:25 50 MG Tiotropium [place] (Spiriva Handihaler Inhaler) 1 puff DAILY INH 07/08/17 09:00 08/07/17 08:59 Future Hold Ipratropium [place] (Atrovent 0.02% 0.5MG/2.5ML Neb) 0.5 mg Q6R INH 07/07/17 15:00 08/06/17 14:59 07/09/17 07:39 0.5 MG Ipratropium [place] (Atrovent 0.02% 0.5MG/2.5ML Neb) 0.5 mg Q2H PRN INH 07/07/17 14:30 08/06/17 14:29 Levalbuterol (Xopenex 0.63 Mg/ 3 Ml Neb) 0.63 mg Q6R INH 07/07/17 15:00 08/06/17 14:59 07/09/17 07:39 0.63 MG Levalbuterol (Xopenex 1.25MG/ 0.5ML Neb) 1.25 mg Q2H PRN INH 07/07/17 14:45 08/06/17 14:44 Miconazole Nitrate (Desenex Powder) 1 appln PRN PRN EXT 07/08/17 11:15 08/07/17 11:14 07/08/17 18:26 1 APPLN Metoprolol Succinate (Toprol Xl Tab) 25 mg QAM PO 07/09/17 09:00 08/08/17 08:59 07/09/17 08:23 25 MG
--- NOTE | 2017-07-09 16:54 | Discharge Instructions ---
Discharge Instructions Date of Service Jul 09, 2017. Admission Reason for Admission: A-Fib, Diastolic Chf Discharge Discharge Diagnosis / Problem: Dyspnea Discharge Goals Goal(s): Decrease discomfort, Improve function, Improve disease control Activity Recommendations Activity Limitations: resume your previous activity as tolerated . Instructions / Follow-Up Instructions / Follow-Up Follow up with primary care provider Dr. Ovalle on 07/11 @ 1:45 PM Please call to schedule follow up appointment with your Lung doctor Please arrange for right cardiac cath as an outpatient Continue using oxygen at bedtime and with exertion Current Hospital Diet Patient's current hospital diet: AHA Diet (Heart Healthy) Discharge Diet Recommended Diet: AHA Diet (Heart Healthy) Pending Studies Studies pending at discharge: no Medical Emergencies . Who to Call and When: Medical Emergencies: If at any time you feel your situation is an emergency, please call 911 immediately. . Non-Emergent Contact Non-Emergency issues call your: Primary Care Provider, Insurance Marketing Specialist Call Non-Emergent contact if: you have any medication questions . . "Provider Documentation" section prepared by Korin Adam. . VTE Core Measure Inpt VTE Proph given/why not?: Unfractionated heparin SQ
[2017-07-09] MEDS ORDERED: AZIT-57 PO (17:02)
[2017-07-09] MEDS ORDERED: TPRSR25 PO (17:02)
--- NOTE | 2017-07-10 08:15 | Discharge Summary ---
Discharge Summary Date of Service Jul 10, 2017. Discharge Summary Admission Date: Jul 07, 2017 at 13:31 Discharge Date: Jul 09, 2017 Discharge Disposition: Home with services Principal Diagnosis: DYSPNEA Secondary Diagnoses/Problems: Hypertension. Hx Afib CAD s/p Stent Dyslipidemia Procedures: (CHEST FOR PE) ANGIO WITH CLINICAL HISTORY: 86 years-old Female presenting with ^sob eval for PE, chest pain. TECHNIQUE: Multidetector CT angiography of the chest was performed after administration of intravenous contrast. 3-D volumetric and/or maximum intensity projection (MIP) images were subsequently reconstructed for review. IV contrast: 93 mL of Optiray 320. A dose lowering technique was used consistent with the principles of ALARA (as low as reasonably achievable). COMPARISON: 04/29/2017. CT DOSE (mGy.cm): The estimated cumulative dose is 676.40 mGy.cm. FINDINGS: Media Marketing Manager topogram: Cardiomegaly. Pulmonary vasculature: The study is suboptimal for the assessment of pulmonary embolus secondary to respiratory motion artifact. Allowing for this, no central filling defect. Evaluation of segmental and subsegmental pulmonary arteries is slightly limited. Main pulmonary artery is enlarged measuring 4.4 cm in diameter. The right and left pulmonary arteries are also enlarged as are the segmental and subsegmental arteries. No flattening of the interventricular septum. No intracardiac intracardiac filling defect. Mild reflux of contrast into the intrahepatic IVC suggesting elevated right heart pressure. Remaining chest: On soft tissue windows, few small nodules in the thyroid, one of which in the right lobe is calcified. Calcified focus in the left breast, possibly degenerated fibroadenoma. Several subcentimeter lymph nodes in the mediastinum in the prevascular and precarinal regions, measuring up to 10 mm in the short axis. Atherosclerosis of the aorta. The branch vessels of the aortic arch are tortuous likely implying chronic hypertension. Multichamber enlargement of the heart. Aortic valve, coronary artery, and mitral annular calcification. Persistent small pericardial effusion not significantly changed from prior exam. No gross evidence of pericardial nodularity. No pleural effusion. 14 mm right adrenal gland nodule with a density consistent with benign adenoma. On lung windows, patchy groundglass opacity well joint dated by smooth interlobular septal thickening consistent with a crazy painting pattern. Dependent reticulation also noted. Respiratory artifact obscures the pulmonary architecture at the lung bases. Central airways patent. Peripheral areas poorly assessed. On bone windows, degenerative changes of the spine. Degenerative changes of the bilateral glenohumeral joints. Multiple old right rib fractures noted in varying stages of healing. IMPRESSION: 1. Allowing for motion artifact degradation, no evidence of central pulmonary embolus. 2. Findings consistent with cardiogenic pulmonary edema with elevated pulmonary arterial and right heart pressures likely a consequence of elevated left heart pressure. 3. Borderline mediastinal lymphadenopathy. 4. 14 mm right adrenal gland benign adenoma. 5. Multiple old right rib fractures in varying stages of healing. Electronically signed by: Damir Rodriguez M.D. 07/07/2017 12:24 PM Dictated Date/Time: 07/07/2017 12:15 PM Dobutamine Stress Echo Interpretation Summary * Name: MENA EUBANKS Study Date: 07/09/2017 09:51 AM BP: 118/70 mmHg * Patient Location: [facility]\\S\\N285\\S\\2 HR: 82 * : 1930 (M/d/yyy) Gender: Female Height: 67 in * Age: 86 yrs Ethnicity: [place] Weight: 227 lb * Ordering Physician: Carol Castaneda * Referring Physician: Self, Referred * Performed By: Alejandro Zhu RCS * * Reason For Study: CAD, Dyspnea * BSA: 2.1 m2 * -- Conclusions -- * Nonischemic dobutamine stress echocardiogram. * No arrhythmias. * Normal HR and BP response to dobutamine infusion. * No symptoms with stress. * Peark PASP with dobutamine infusion unchanged from rest. Procedure Details * DOBUTAMINE ECHO, CPT#43311 * A contrast injection of Definity was performed to improve assessment of LV function. * Contrast was injected into an intravenous site in the left arm. * One vial of Definity ultrasound contrast was diluted in normal saline to a total volume of 10 ml. A total of '3' ml of solution was administered during imaging. * Lot # [id number] of Definity utilized for procedure. * Expiration date . * The attending nurse who injected the contrast agent was Irlanda Peña RN. Stress Parameters * Normal baseline electrocardiogram. * No arrhythmia were noted with stress. * The stress portion of this study was personally supervised by the undersigned interpreting physician. * Rest heart rate was '82' BPM. * Rest blood pressure was '118/70' * Maximum heart rate achieved was 137 bpm. * Maximum heart rate was 103 % of maximum age-predicted heart rate. * Maximum blood pressure was '133/48' * Maximum Dobutamine infusion rate was '30' mcg/kg/min. * Dobutamine infusion was terminated due to achieving target heart rate * A total of 2.5 mg of IV Metoprolol was administered to reverse Dobutamine- induced tachycardia. * The patient did not exhibit any symptoms during drug infusion. * Normal blood pressure response to exercise. ECHO Interpretation Summary * Name: MENA EUBANKS Study Date: 07/08/2017 01:32 PM BP: 131/72 mmHg * Patient Location: [facility]\\S\\85\\S\\2 HR: 101 * : 1930 (M/d/yyyy) Gender: Female Height: 67 in * Age: 86 yrs Ethnicity: [place] Weight: 225 lb * Ordering Physician: Carol Castaneda * Referring Physician: Self, Referred * Performed By: Rosenda Thomson RDCS * * Reason For Study: Congestive Heart Failure * BSA: 2.1 m2 * -- Conclusions -- * Compared to previous study of 09/06/15: RV systolic function is now mildly reduced and pericardial effusion is now present. * Normal LV chamber size with moderate concentric LVH. * Normal LV systolic function, EF 65-70%. * No segmental left ventricular wall motion abnormalities are noted. * The right ventricular cavity size is normal (basal dimension <4.2 cm in right ventricular apical 4-chamber view). Mildly reduced RV systolic function. * Aortic valve sclerosis moderate, without significant aortic valvular stenosis. * Moderate left atrial enlargement. * Small, loculated anterior pericardial effusion with stranding to suggest chronicity. No hemodynamic significance. Procedure Details * A complete two-dimensional transthoracic echocardiogram was performed (2D, M-mode, Doppler and color flow Doppler). * The study was technically difficult. * The study was technically difficult, but visualization was adequate with the administration of Definity ultrasound contrast. * A contrast injection of Definity was performed to improve assessment of LV function. * Contrast was injected into an intravenous site in the left arm. * One vial of Definity ultrasound contrast was diluted in normal saline to a total volume of 10 ml. A total of '2' ml of solution was administered during imaging. * Lot # [id number] of Definity utilized for procedure. * Expiration date . * The attending nurse who injected the contrast agent was MAJO Rahman. Left Ventricle * The left ventricle is normal in size. * There is moderate concentric left ventricular hypertrophy. * Ejection Fraction = 65-70%. * Left ventricular systolic function is normal. * No segmental left ventricular wall motion abnormalities are noted. * The left ventricular wall motion is normal. Right Ventricle * The right ventricular cavity size is normal (basal dimension <4.2 cm in right ventricular apical 4-chamber view). * The right ventricular systolic function is mildly reduced. Atria * The left atrium is moderately dilated. * Right atrial size is normal. * No ASD detected; PFO is not assessed. Mitral Valve * There is mild mitral annular calcification. * There is no mitral valve stenosis. * There is no mitral regurgitation noted. Tricuspid Valve * The tricuspid valve is normal in structure and function. Aortic Valve * The aortic valve is trileaflet. * Aortic valve sclerosis moderate, without significant aortic valvular stenosis. * There is no significant aortic regurgitation. Pulmonic Valve * The pulmonary valve is not well seen, but the Doppler examination is normal without significant regurgitation or stenosis. Great Vessels * The aortic root is normal size. Pericardium/Pleural * Small, loculated anterior pericardial effusion with stranding to suggest chronicity. No hemodynamic significance. Consultations: Pulmonary Cardio Medication Reconciliation New Medications: Azithromycin (Azithromycin) 250 Mg Tab 250 MG PO DAILY for 3 Days, #3 TAB Metoprolol Succinate (Metoprolol Succinate ER) 25 Mg Tabcr 25 MG PO QAM for 30 Days Continued Medications: Albuterol Hfa (Ventolin Hfa) 200 Puffs/48114 Mcg Aers 2-4 PUFFS INH Q6H PRN for SOB/Wheezing, #1 INHALER Amlodipine (Norvasc) 5 Mg Tab 5 MG PO QAM, TAB Aspirin (Aspirin 81) 81 Mg Tab 81 MG PO QAM Atorvastatin (Lipitor) 80 Mg Tab 80 MG PO QPM, TAB Colestipol Hcl (Colestid) 1 Gm Tab 1 GM PO QAM, TAB Furosemide (Lasix) 40 Mg Tab 40 MG PO MWF, TAB Lisinopril (Zestril) 40 Mg Tab 40 MG PO QAM, TAB Multivitamin (Multivitamin) Tab 1 TAB PO QAM, TAB Sertraline (Zoloft) 50 Mg Tab 50 MG PO QAM, TAB Tiotropium [place] (Spiriva Handihaler) 5 Puff/90 Mcg Aerp 1 PUFF INH DAILY, #1 Discontinued Medications: Metoprolol Tartrate (Lopressor) (Lopressor) 25 Mg Tab 12.5 MG PO BID, TAB Prednisone (Prednisone) 10 Mg Tab 10 MG PO BID, #1 ON TAPER Admission Information HPI (per Admitting provider): CHIEF COMPLAINT: Shortness of breath. HISTORY OF PRESENT ILLNESS: An 86-year-old female with past medical history significant for CAD status post stent, interstitial lung disease, chronic diastolic CHF, hyperlipidemia, history of hyperglycemia, history of anxiety, history of hypertension, who was brought in because of shortness of breath. The patient woke up today morning around 4:00 she felt that something blocking her throat and she was getting short of breath and has dry cough that prompted her to come to the ER. Currently, she is on prednisone taper possibly for bronchitis. Denies any chest pain. Denies any fever, chills. No headaches, no blurred vision, no nausea, no vomiting, no abdominal pain, has chronic lower extremity edema which is stable. Denies any diarrhea or constipation, no blood in the stools, no black stools. No blood in the urine, no burning micturition. Appetite is okay. Ambulates in the house with the help of a walker, but lately she is getting more short of breath walking short distances. Currently resting comfortably and hemodynamically stable. ALLERGIES: ACETAMINOPHEN, DIPHENHYDRAMINE aspirin, SIMVASTATIN, Loratadine PAST MEDICAL HISTORY: As mentioned above. PAST SURGICAL HISTORY: Total knee arthroplasty, CABG, LAD stent, colonoscopy with biopsy, right partial hip replacement, and total abdominal hysterectomy. MEDICATIONS: The patient is on Lasix 40 mg p.o. on Saturday, Saturday and Saturday; prednisone taper, albuterol 2 puffs inhalation every 6 hours p.r.n., amlodipine 5 mg p.o. daily, aspirin 81 mg p.o. daily, atorvastatin 80 mg p.o. daily, Colestipol 1 gram p.o. a.m., lisinopril 40 mg p.o. a.m., metoprolol tartrate 12.5 mg p.o. b.i.d., multivitamin 1 tablet p.o. daily, Zoloft 50 mg p.o. a.m., and Spiriva 1 puff daily. Physical Exam (per Admitting): PHYSICAL EXAMINATION: GENERAL: The patient is of moderate built, not in distress. VITAL SIGNS: Temperature 36.4, pulse 112, respiratory rate 24, blood pressure 140/100, oxygen 96% on 2 liters. HEENT: No pallor, no icterus. Pupils equal, round, and reactive to light. NECK: No JVD, no neck masses, no carotid bruits. CARDIOVASCULAR: S1, S2 heard, regular rate and rhythm, no murmur, no gallop. RESPIRATORY SYSTEM: Clear to auscultation bilaterally. No wheezing. Mild bibasilar crackles. ABDOMEN: Soft, bowel sounds present. Nontender. No distention. CENTRAL NERVOUS SYSTEM: Cranial nerves are grossly intact. Nonfocal. EXTREMITIES: Lower extremity edema present. No erythema seen. Hospital Course DYSPNEA Acute on Chronic SOB, has been going on for years CTA chest showed no evidence of central pulmonary embolus. Pulmonology recommended Right hearth cath Pt refused cardiac cath at this time because she had cath done in the past case discussed with Cardiology recommended to arrange it as an outpatient Continue supplemental O2 Continue Xopenex/Ipratropium nebs Q6h. Continue Zithromax ECHO done on 07/08/17 * Compared to previous study of 09/06/15: RV systolic function is now mildly reduced and pericardial effusion is now present. * Normal LV chamber size with moderate concentric LVH. * Normal LV systolic function, EF 65-70%. * No segmental left ventricular wall motion abnormalities are noted. * The right ventricular cavity size is normal (basal dimension <4.2 cm in right ventricular apical 4-chamber view). Mildly reduced RV systolic function. * Aortic valve sclerosis moderate, without significant aortic valvular stenosis. * Moderate left atrial enlargement. * Small, loculated anterior pericardial effusion with stranding to suggest chronicity. No hemodynamic significance. Dobutamine stress echo on 07/09/17 * Nonischemic dobutamine stress echocardiogram. * No arrhythmias. * Normal HR and BP response to dobutamine infusion. * No symptoms with stress. * Peark PASP with dobutamine infusion unchanged from rest. CAD s/p Stent. Asymptomatic Continue home medications of beta nidia, aspirin and statin. Hypertension. Continue amlodipine, Lopressor and lisinopril Hyperlipidemia. Continue statin. HX atrial fibrillation Rate controlled Continue Lopressor Not on anticoagulatiodue to hx of GI bleeding. DVT ppx heparin sub CODE STATUS FULL CODE Disposition Possible discharge home today Total time spent on discharge = 35 minutes This includes examination of the patient, discharge planning, medication reconciliation, and communication with other providers. Discharge Instructions Discharge Instructions Date of Service Jul 09, 2017. Admission Reason for Admission: A-Fib, Diastolic Chf Discharge Discharge Diagnosis / Problem: Dyspnea Discharge Goals Goal(s): Decrease discomfort, Improve function, Improve disease control Activity Recommendations Activity Limitations: resume your previous activity as tolerated . Instructions / Follow-Up Instructions / Follow-Up Follow up with primary care provider Dr. Ovalle on 07/11 @ 1:45 PM Please call to schedule follow up appointment with your Lung doctor Please arrange for right cardiac cath as an outpatient Continue using oxygen at bedtime and with exertion Current Hospital Diet Patient's current hospital diet: AHA Diet (Heart Healthy) Discharge Diet Recommended Diet: AHA Diet (Heart Healthy) Pending Studies Studies pending at discharge: no Medical Emergencies . Who to Call and When: Medical Emergencies: If at any time you feel your situation is an emergency, please call 911 immediately. . Non-Emergent Contact Non-Emergency issues call your: Primary Care Provider, Chain Dyer Call Non-Emergent contact if: you have any medication questions . . "Provider Documentation" section prepared by Korin Adam. . VTE Core Measure Inpt VTE Proph given/why not?: Unfractionated heparin SQ Additional Copies To Manuel Garcia III, M.D.
== END 2017-07-09 17:56 | disposition home health service (06) | DRG 196 ==
LOC: C.EDB 10:26 → C.MED 13:31 → ENRESERV 14:02
PROVIDERS: ADMIT Hospitalist; ATTEND Internal Medicine
DX: J84.9 Interstitial pulmonary disease, unspecified (principal); I50.33 Acute on chronic diastolic (congestive) heart failure; J20.9 Acute bronchitis, unspecified; I11.0 Hypertensive heart disease with heart failure; I48.91 Unspecified atrial fibrillation; E78.5 Hyperlipidemia, unspecified; Z96.651 Presence of right artificial knee joint; Z98.61 Coronary angioplasty status

== ENCOUNTER → 2017-09-24 | Outpatient (CLI) | payer OTHER ==
[~2017-09-24] MED LIST changes: +AZIT-57 PO; -METO25TA56 PO; +SPRIN INH; +TPRSR25 PO
[2017-09-24 14:27] LABS: ALBUMIN 2.9 gm/dl (3.4-5.0); ALT/SGPT 20 U/L (12-78); BLOOD UREA NITROGEN 12 mg/dl (7-18); CALCIUM 9.8 mg/dl (8.5-10.1); CARBON DIOXIDE 29 mmol/L (21-32); CREATININE 0.74 mg/dl (0.60-1.20); GLUCOSE 123 mg/dl (70-99); POTASSIUM 3.4 mmol/L (3.5-5.1); SODIUM 139 mmol/L (136-145)
[2017-09-24 14:30] LABS: ALKALINE PHOSPHATASE 250 U/L (45-117); AST/SGOT 16 U/L (15-37); TOTAL PROTEIN 7.7 gm/dl (6.4-8.2)
== END | disposition home or self-care (01) ==
LOC: C.LAB1850 11:52
PROVIDERS: ATTEND Physician Assistant
DX: I27.20 Pulmonary hypertension, unspecified (principal)

== ENCOUNTER → 2017-11-28 | Outpatient (CLI) | payer OTHER ==
--- NOTE | 2017-11-28 16:43 | DIAGNOSTIC IMAGING REPORT ---
CHEST 2 VIEWS ROUTINE CLINICAL HISTORY: 87 years-old Female presenting with J44.9 Chronic obstructive pulmonary [id number]. TECHNIQUE: PA and lateral views of the chest were obtained. COMPARISON: 07/07/2017. FINDINGS: Atherosclerosis of aortic arch. Prominence and tortuosity of the thoracic aorta. Cardiac silhouette moderately enlarged. Persistent reticulonodular opacities with a basilar predominance, greater on the right. Bronchial wall thickening. Heterogeneity of lung markings with prominence of pulmonary vasculature. No large effusion or pneumothorax. Osteopenia may be present. Upper abdomen normal. IMPRESSION: 1. Findings suggest emphysema with bibasilar infiltrates greater on the right. Infection or aspiration is difficult to exclude though the appearance is similar to prior exam and may simply relate to heterogeneity of lung parenchyma on the setting of COPD. 2. Moderate cardiomegaly with possible volume overload. No kris pulmonary edema. Electronically signed by: Damir Rodriguez M.D. 11/28/2017 4:41 PM Dictated Date/Time: 11/28/2017 4:40 PM
== END | disposition home or self-care (01) ==
LOC: C.RAD1850 16:16
PROVIDERS: ATTEND Physician Assistant
DX: J44.9 Chronic obstructive pulmonary disease, unspecified (principal)